=== PATIENT | male | born 1950 | race American Indian/Alaskan Native ===

== ENCOUNTER 2016-06-03 10:53 | Outpatient (CLI) | payer MEDICARE ==
[2016-06-03] MEDS ORDERED: XYLOCAINE TOPICAL 2% TP ONE (12:19)
== END 2016-06-03 10:54 | disposition home or self-care (01) ==
LOC: WOUND 10:53
PROVIDERS: ATTEND Orthopaedic Surgery
DX: L89.214 Pressure ulcer of right hip, stage 4 (principal); I10 Essential (primary) hypertension; J44.9 Chronic obstructive pulmonary disease, unspecified; M86.9 Osteomyelitis, unspecified; Z86.14 Personal history of Methicillin resistant Staphylococcus aureus infection; Z86.73 Personal history of transient ischemic attack (TIA), and cerebral infarction without residual deficits
CPT/HCPCS: 97605

== ENCOUNTER 2016-06-17 13:19 | Outpatient (CLI) | payer MEDICARE ==
[~2016-06-17 13:19] MED LIST: NACL 0.9% 500 ML IR ONE; XYLOCAINE TOPICAL 2% TP ONE
[2016-06-17] MEDS ORDERED: XYLOCAINE TOPICAL 2% TP ONE (15:04)
== END 2016-06-17 13:20 | disposition home or self-care (01) ==
LOC: WOUND 13:19
PROVIDERS: ATTEND Internal Medicine
DX: L89.214 Pressure ulcer of right hip, stage 4 (principal); J44.0 Chronic obstructive pulmonary disease with (acute) lower respiratory infection; I10 Essential (primary) hypertension; B18.2 Chronic viral hepatitis C; I25.10 Atherosclerotic heart disease of native coronary artery without angina pectoris; M19.90 Unspecified osteoarthritis, unspecified site; M86.9 Osteomyelitis, unspecified; Z86.14 Personal history of Methicillin resistant Staphylococcus aureus infection; Z86.73 Personal history of transient ischemic attack (TIA), and cerebral infarction without residual deficits
CPT/HCPCS: 99213; G0463

== ENCOUNTER 2016-06-17 14:24 | Emergency (ER) | payer MEDICARE ==
--- NOTE | 2016-06-17 15:23 | Admit Criteria Form ---
Admission Criteria Documentation: CELLULITIS Clinical Indications for Admission to Inpatient Care (Place 'X' for any and all applicable criteria): Admission is indicated for ANY ONE of the following(1)(2)(3)(4)(5): [ ]I. Limb-threatening infection [ ]II. High-risk comorbid condition as indicated by ANY ONE of the following: [ ]a) Uncontrolled diabetes (eg, HbA1c greater than 10% (0.1)) [ ]b) Cirrhosis [ ]c) Neutropenia [ ]d) Asplenia [ ]e) Immunosuppression [ ]f) Symptomatic heart failure [ ]III. Failure of outpatient therapy as indicated by ALL of the following: [ ]a) Progression or no improvement after adequate trial (minimum of 48 hours, with longer period for stable lower extremity infection) [ ]b) Adequate antibiotic regimen as indicated by use of ANY ONE of the following: [ ]i) First-generation cephalosporin (e.g., cephalexin) [ ]ii) Antistaphylococcal penicillin (e.g., dicloxacillin) [ ]iii) Penicillin-allergic patient regimen (clindamycin, extended-spectrum fluoroquinolone, or doxycycline) [ ]iv) Resistant organism (eg, methicillin-resistant Staphylococcus aureus) regimen (6) [ ]c) Outpatient intravenous therapy regimen is not appropriate due to ANY ONE of the following. (7)(8)(9)(10): [ ]i) It was tried and was not successful (eg, progression of infection). [ ]ii) It is not available or cannot be arranged in a clinically appropriate time frame (e.g., the next day). [ ]iii) Clinical presentation (eg, acuity of infection, rapidity of progression, confirmed or suspected bacteremia) is judged to require ALL of the following: [ ]1) Immediate initiation of intravenous therapy ( eg, cannot wait for next day) [ ]2) Intensity of patient monitoring and observation (eg, vital sign measurement, checks for infection progression) that cannot be provided at other than inpatient level of care [ ]IV. Mental status changes [ ]V. Bacteremia [ ]. Hemodynamic instability [ ]VII. Suspected necrotizing soft tissue infection (e.g., gas in tissue)(11)( 12) [ ]VIII. Orbital infection (13)(14) [ ]IX. Associated surgical procedure (e.g., abscess drainage, debridement) not amenable to outpatient, emergency department, or observation care [ ]X. Cutaneous gangrene [ ]XI. High fever (temperature greater than 39.5 degrees C (103.1 degrees F) (oral)) not responsive to outpatient, emergency department, or observation care therapy [ ]XIII. Inpatient admission required rather than observation care (Also use Cellulitis: Observation Care as appropriate) because of ANY ONE of the following : [ ]a) Periorbital or perineal infection that is severe or worsening [ ]b) Severe pain requiring acute inpatient management [ ]c) IV fluid to replace significant ongoing (e.g., for over 24 hours) losses (greater than 3L/m2 per day) [ ]d) Compartment syndrome monitoring (17) [ ]e) Strict or protective (eg, laminar flow) isolation [ ]f) Urgent debridement or skin grafting [ ]g) Bone or joint debridement [ ]h) Immediate inpatient surgery [ ]i) Other condition, treatment or monitoring requiring inpatient admission Extended stay beyond goal length of stay may be needed for (1)(18): [ ]a) Necrotizing soft tissue infection or fasciitis [ ]b) Gram-negative infection [ ]c) Methicillin-resistant Staphylococcal aureus (MRSA) infection [ ]d) Peripheral venous insufficiency with cellulitis [ ]e) Extensive edema [ ]f) Sepsis or continued Hemodynamic instability [ ]g) Continued high fever or mental status change [ ]h) Bacteremia [ ]i) Active serious comorbid conditions ( eg, heart failure, renal insufficiency) The original [employer] content created by [employer] has been revised. The portions of the content which have been revised are identified through the use of italic text or in bold, and [facility] has neither reviewed nor approved the modified material. All other unmodified content is copyright [employer] [facility] Please see references footnoted in the original [employer] edition 2016 Admission Criteria Met: Yes
--- NOTE | 2016-06-17 16:32 | Emergency Department Report ---
- General Chief complaint: Laceration/Recheck/Suture Stated complaint: POSS WOUND INFECTION Time Seen by Provider: 06/17/16 16:06 Source: patient Mode of arrival: Stretcher Limitations: No Limitations - History of Present Illness Initial comments: This is a 66-year-old gentleman with a long-standing history of right hip wound. He has been using a wound VAC and having daily wound excuse me 3 times a day wound evaluation by home health nurse as well as a weekly evaluation by that wound clinic here at the hospital. His wound did grow out MRSA as well as Proteus mirabilis in March upon admission. Patient indicates he is feeling well in general states that he has weakness generalized that is at his baseline he also reports that he has weakness in his lower extremities bilaterally and that this has been present for approximately the last 8 months. He describes no change in amount of his weakness denies fevers at home states he's eating and drinking well and feels that he is doing well in general. Patient indicates that when he arrived at wound care today they asked him to come to the ED for further evaluation due to portion of his demonstrating increased erythema. Patient denies any increase of drainage from the wound. He states again he has been feeling at his baseline. Patient does not recall the last time he was on antibiotics. MD complaint: lesion -: Gradual, month(s) Tetanus Up to Date: yes Location: buttocks Severity: moderate Severity scale (0 -10): 3 Quality: dull Consistency: constant Worsens with: none Context: other Associated symptoms: denies other symptoms Treatments Prior to Arrival: bandages - Related Data Home Medications Medication Instructions Recorded Confirmed Last Taken Sennosides/Docusate Sodium 1 each PO QDAY 07/31/15 06/17/16 08/20/15 [Doc-Q-Lax Tablet] Aspirin [Aspirin TAB] 81 mg PO DAILY 06/17/16 06/17/16 Unknown Coreg 25 mg PO BID 06/17/16 06/17/16 Unknown Previous Rx's Medication Instructions Recorded Last Taken Type Omeprazole [PriLOSEC] 20 mg PO QDAY #30 capsule. 10/30/15 Unknown Rx amLODIPine [Norvasc] 5 mg PO QDAY #30 tablet 10/30/15 Unknown Rx Erythromycin Base [Erythromycin] 500 mg PO TID #30 tablet 06/17/16 Unknown Rx Sulfamethoxazole/Trimethoprim 1 each PO BID #20 tablet 06/17/16 Unknown Rx [Bactrim DS TAB] Allergies Allergy/AdvReac Type Severity Reaction Status Date / Time No Known Allergies Allergy Verified 07/30/15 17:02 Abscess Boil HPI - HPI Chief Complaint: Laceration/Recheck/Suture Stated Complaint: POSS WOUND INFECTION Time Seen by Provider: 06/17/16 16:06 Location: Other (R hip/buttock) Severity: Mild History: Yes Previous History, No Fever, No Pain, No Foreign Body Home Medications: Home Medications Medication Instructions Recorded Confirmed Last Taken Sennosides/Docusate Sodium 1 each PO QDAY 07/31/15 06/17/16 08/20/15 [Doc-Q-Lax Tablet] Aspirin [Aspirin TAB] 81 mg PO DAILY 06/17/16 06/17/16 Unknown Coreg 25 mg PO BID 06/17/16 06/17/16 Unknown Previous Rx's Medication Instructions Recorded Last Taken Type Omeprazole [PriLOSEC] 20 mg PO QDAY #30 capsule. 10/30/15 Unknown Rx amLODIPine [Norvasc] 5 mg PO QDAY #30 tablet 10/30/15 Unknown Rx Erythromycin Base [Erythromycin] 500 mg PO TID #30 tablet 06/17/16 Unknown Rx Sulfamethoxazole/Trimethoprim 1 each PO BID #20 tablet 06/17/16 Unknown Rx [Bactrim DS TAB] Allergies/Adverse Reactions: Allergies Allergy/AdvReac Type Severity Reaction Status Date / Time No Known Allergies Allergy Verified 07/30/15 17:02 ED Review of Systems ROS: Stated complaint: POSS WOUND INFECTION Other details as noted in HPI Constitutional: denies: chills, fever Eyes: denies: eye pain, eye discharge, vision change ENT: denies: ear pain, throat pain Respiratory: denies: cough, shortness of breath, wheezing Cardiovascular: denies: chest pain, palpitations Endocrine: no symptoms reported Gastrointestinal: denies: abdominal pain, nausea, diarrhea Genitourinary: denies: urgency, dysuria Musculoskeletal: denies: back pain, joint swelling, arthralgia Skin: lesions (R buttock). denies: rash Neurological: denies: headache, weakness (generalized. Lower extremity weakness) , paresthesias Psychiatric: denies: anxiety, depression Hematological/Lymphatic: denies: easy bleeding, easy bruising ED Past Medical Hx - Past Medical History Hx Hypertension: Yes Hx CVA: Yes (2 years ago) Hx Heart Attack/AMI: Yes Hx Deep Vein Thrombosis: No Hx GERD: Yes Hx Liver Disease: Yes (Hep C) Hx Renal Disease: No Hx Arthritis: Yes Hx Psychiatric Treatment: Yes (DEPRESSION) Hx HIV: No Additional medical history: HIGH CHOLESTEROL. BPH. CAD. ULCER - Surgical History Hx Open Heart Surgery: Yes Hx Pacemaker: No Hx Internal Defibrillator: No Additional Surgical History: Left hip surgery. LEFT KNEE SURGERY. RIGHT HIP SURGERY - Social History Smoking Status: Never Smoker Substance Use Type: None - Medications Home Medications: Home Medications Medication Instructions Recorded Confirmed Last Taken Type Sennosides/Docusate Sodium 1 each PO QDAY 07/31/15 06/17/16 08/20/15 History [Doc-Q-Lax Tablet] Omeprazole [PriLOSEC] 20 mg PO QDAY #30 capsule. 10/30/15 06/17/16 Unknown Rx amLODIPine [Norvasc] 5 mg PO QDAY #30 tablet 10/30/15 06/17/16 Unknown Rx Aspirin [Aspirin TAB] 81 mg PO DAILY 06/17/16 06/17/16 Unknown History Coreg 25 mg PO BID 06/17/16 06/17/16 Unknown History Erythromycin Base [Erythromycin] 500 mg PO TID #30 tablet 06/17/16 Unknown Rx Sulfamethoxazole/Trimethoprim 1 each PO BID #20 tablet 06/17/16 Unknown Rx [Bactrim DS TAB] ED Physical Exam - General Limitations: No Limitations General appearance: alert, in no apparent distress - Head Head exam: Present: atraumatic, normocephalic - Eye Eye exam: Present: PERRL, EOMI - ENT ENT exam: Present: mucous membranes moist - Neck Neck exam: Present: normal inspection - Respiratory Respiratory exam: Present: normal lung sounds bilaterally. Absent: respiratory distress - Cardiovascular Cardiovascular Exam: Present: regular rate, normal rhythm. Absent: systolic murmur, diastolic murmur, rubs, gallop - GI/Abdominal GI/Abdominal exam: Present: soft, normal bowel sounds - External exam: Present: other (right buttock with involved lesion with a 2 cm x 3 cm H agree ulcer with wet-to-dry dressing in place good granular base. No significant drainage no foul smell. Mild hue of erythema extending in the left upper aspect of the wound involving approximately 4 cm x 6 cm soft tissue region. No fluctuance noted in this region.) - Extremities Exam Extremities exam: Present: other (equal distal pedal pulses bilat. Muscle wasting of lower extremities bilat.). Absent: pedal edema, joint swelling ED Course Vital Signs 06/17/16 06/17/16 15:46 16:52 Temperature 98.2 F Pulse Rate 85 74 Respiratory 16 16 Rate Blood Pressure 110/75 108/78 [Left] O2 Sat by Pulse 100 99 Oximetry - Reevaluation(s) Reevaluation #1: 06/17/16 16:35 I did review patient's last admission in March demonstrating microbiology detail of his wound. It demonstrated for his paralysis as well as MRSA infection. Proteus was sensitive to several oral agents including erythromycin. MRSA was sensitive to Bactrim. Patient is afebrile here he is well-appearing. He describes being at his baseline in general. I feel he is appropriate for home his vital signs are stable here as well. We will start him on oral antibiotics for home. He is set for recheck to wound care in 1 week. He has evaluation 3 times a week wound evaluation by home health nurses well. Critical Care Time: No Critical care attestation.: If time is entered above; I have spent that time in minutes in the direct care of this critically ill patient, excluding procedure time. ED Disposition Clinical Impression: MRSA (methicillin resistant Staphylococcus aureus) infection Cellulitis Qualifiers: Site of cellulitis: buttock Qualified Code(s): L03.317 - Cellulitis of buttock Disposition: DISCHARGED TO HOME OR SELFCARE Is pt being admited?: No Does the pt Need Aspirin: No Condition: Stable Additional Instructions: Continue with current wound care. Watch for further spread of red area around wound or increased drainage or fevers. Prescriptions: Erythromycin Base [Erythromycin] 500 mg PO TID #30 tablet Sulfamethoxazole/Trimethoprim [Bactrim DS TAB] 1 each PO BID #20 tablet Referrals: PRIMARY CARE, [Primary Care Provider] - 3-5 Days
[2016-06-17 16:53] VITALS: BP 108/78
== END 2016-06-17 18:10 | disposition home or self-care (01) ==
LOC: ED 14:24
DX: A49.02 Methicillin resistant Staphylococcus aureus infection, unspecified site (principal); L03.317 Cellulitis of buttock; I10 Essential (primary) hypertension; I25.2 Old myocardial infarction; K21.9 Gastro-esophageal reflux disease without esophagitis; M19.90 Unspecified osteoarthritis, unspecified site; F32.9 Major depressive disorder, single episode, unspecified; I25.10 Atherosclerotic heart disease of native coronary artery without angina pectoris; E78.00 Pure hypercholesterolemia, unspecified; Z86.73 Personal history of transient ischemic attack (TIA), and cerebral infarction without residual deficits; Z86.19 Personal history of other infectious and parasitic diseases
CPT/HCPCS: 99283

== ENCOUNTER 2016-07-15 11:34 | Outpatient (CLI) | payer MEDICARE ==
[2016-07-15] MEDS ORDERED: XYLOCAINE TOPICAL 4% TP ONE (12:04)
[2016-07-16] MEDS ORDERED: XYLOCAINE TOPICAL 4% TP ONE (08:46)
== END 2016-07-15 11:35 | disposition home or self-care (01) ==
LOC: WOUND 11:34
PROVIDERS: ATTEND Internal Medicine
DX: L89.214 Pressure ulcer of right hip, stage 4 (principal); J44.0 Chronic obstructive pulmonary disease with (acute) lower respiratory infection; I10 Essential (primary) hypertension; I25.10 Atherosclerotic heart disease of native coronary artery without angina pectoris; M19.90 Unspecified osteoarthritis, unspecified site; M86.9 Osteomyelitis, unspecified; H91.90 Unspecified hearing loss, unspecified ear; Z96.652 Presence of left artificial knee joint; Z96.642 Presence of left artificial hip joint; Z86.14 Personal history of Methicillin resistant Staphylococcus aureus infection; Z86.73 Personal history of transient ischemic attack (TIA), and cerebral infarction without residual deficits
CPT/HCPCS: 97605

== ENCOUNTER 2016-07-29 10:33 | Outpatient (CLI) | payer MEDICARE ==
[2016-07-29] MEDS ORDERED: XYLOCAINE TOPICAL 2% ONE (10:44)
[2016-07-29] MEDS ORDERED: XYLOCAINE TOPICAL 4% TP ONE (15:09)
== END 2016-07-29 10:34 | disposition home or self-care (01) ==
LOC: WOUND 10:33
PROVIDERS: ATTEND Internal Medicine
DX: L89.214 Pressure ulcer of right hip, stage 4 (principal); M19.90 Unspecified osteoarthritis, unspecified site; H91.90 Unspecified hearing loss, unspecified ear; I10 Essential (primary) hypertension; M86.9 Osteomyelitis, unspecified; J44.1 Chronic obstructive pulmonary disease with (acute) exacerbation; I25.10 Atherosclerotic heart disease of native coronary artery without angina pectoris; Z96.652 Presence of left artificial knee joint; Z96.642 Presence of left artificial hip joint; Z86.73 Personal history of transient ischemic attack (TIA), and cerebral infarction without residual deficits; Z86.14 Personal history of Methicillin resistant Staphylococcus aureus infection
CPT/HCPCS: 97605

== ENCOUNTER 2016-08-26 11:03 | Outpatient (CLI) | payer MEDICARE ==
[~2016-08-26 11:03] MED LIST changes: -NACL 0.9% 500 ML IR ONE; +NACL ONE; -XYLOCAINE TOPICAL 2% TP ONE
[2016-08-26] MEDS ORDERED: XYLOCAINE TOPICAL 4% TP ONE ×2 (11:17→11:42)
== END 2016-08-26 11:04 | disposition home or self-care (01) ==
LOC: WOUND 11:03
PROVIDERS: ATTEND Internal Medicine
DX: L89.214 Pressure ulcer of right hip, stage 4 (principal); L89.152 Pressure ulcer of sacral region, stage 2; J44.1 Chronic obstructive pulmonary disease with (acute) exacerbation; M19.90 Unspecified osteoarthritis, unspecified site; I25.10 Atherosclerotic heart disease of native coronary artery without angina pectoris; I10 Essential (primary) hypertension; M86.9 Osteomyelitis, unspecified; H91.90 Unspecified hearing loss, unspecified ear; Z86.14 Personal history of Methicillin resistant Staphylococcus aureus infection; Z86.73 Personal history of transient ischemic attack (TIA), and cerebral infarction without residual deficits; Z96.652 Presence of left artificial knee joint; Z96.642 Presence of left artificial hip joint; Z86.19 Personal history of other infectious and parasitic diseases
CPT/HCPCS: 97605

== ENCOUNTER 2016-09-16 11:22 | Outpatient (CLI) | payer MEDICARE ==
[2016-09-16] MEDS ORDERED: XYLOCAINE TOPICAL 4% TP ONE ×2 (11:25→13:00)
== END 2016-09-16 11:23 | disposition home or self-care (01) ==
LOC: WOUND 11:22
PROVIDERS: ATTEND Surgery
DX: L89.214 Pressure ulcer of right hip, stage 4 (principal); L89.152 Pressure ulcer of sacral region, stage 2; M19.90 Unspecified osteoarthritis, unspecified site; I25.10 Atherosclerotic heart disease of native coronary artery without angina pectoris; J44.1 Chronic obstructive pulmonary disease with (acute) exacerbation; I10 Essential (primary) hypertension; B18.2 Chronic viral hepatitis C; M86.68 Other chronic osteomyelitis, other site; F15.90 Other stimulant use, unspecified, uncomplicated; Z86.14 Personal history of Methicillin resistant Staphylococcus aureus infection; Z86.73 Personal history of transient ischemic attack (TIA), and cerebral infarction without residual deficits; Z96.652 Presence of left artificial knee joint

== ENCOUNTER 2016-09-30 11:10 | Outpatient (CLI) | payer MEDICARE ==
[2016-09-30] MEDS ORDERED: XYLOCAINE TOPICAL 2% ONE (11:35)
[2016-09-30] MEDS ORDERED: XYLOCAINE TOPICAL 2% TP ONE (12:00)
== END 2016-09-30 11:11 | disposition home or self-care (01) ==
LOC: WOUND 11:10
PROVIDERS: ATTEND Surgery
DX: L89.214 Pressure ulcer of right hip, stage 4 (principal); M19.90 Unspecified osteoarthritis, unspecified site; I25.10 Atherosclerotic heart disease of native coronary artery without angina pectoris; J44.1 Chronic obstructive pulmonary disease with (acute) exacerbation; I10 Essential (primary) hypertension; B18.2 Chronic viral hepatitis C; Z86.14 Personal history of Methicillin resistant Staphylococcus aureus infection; Z86.73 Personal history of transient ischemic attack (TIA), and cerebral infarction without residual deficits; Z96.652 Presence of left artificial knee joint; Z96.642 Presence of left artificial hip joint
CPT/HCPCS: 99214; G0463

== ENCOUNTER 2016-11-11 10:32 | Outpatient (CLI) | payer MEDICARE ==
[2016-11-11] MEDS ORDERED: XYLOCAINE TOPICAL 2% ONE (10:57)
[2016-11-11] MEDS ORDERED: XYLOCAINE TOPICAL 2% TP ONE (11:13)
== END 2016-11-11 10:33 | disposition home or self-care (01) ==
LOC: WOUND 10:32
PROVIDERS: ATTEND Surgery
DX: L89.214 Pressure ulcer of right hip, stage 4 (principal); M19.90 Unspecified osteoarthritis, unspecified site; I25.10 Atherosclerotic heart disease of native coronary artery without angina pectoris; J44.1 Chronic obstructive pulmonary disease with (acute) exacerbation; I10 Essential (primary) hypertension; B18.2 Chronic viral hepatitis C; Z86.14 Personal history of Methicillin resistant Staphylococcus aureus infection; Z86.73 Personal history of transient ischemic attack (TIA), and cerebral infarction without residual deficits; Z96.652 Presence of left artificial knee joint; Z96.642 Presence of left artificial hip joint
CPT/HCPCS: 99214; G0463

== ENCOUNTER 2017-04-22 02:42 | Inpatient (IN) | payer MEDICARE ==
[2017-04-22] MEDS ORDERED: ZOFRAN IV ONE (04:50)
[2017-04-22] MEDS ORDERED: NACL 0.9% 1000 ML 1,000 ML IV ONE (04:50)
[2017-04-22] MEDS ORDERED: NACL 0.9% 1000 ML 1,000 ML ONE (04:56)
[2017-04-22] MEDS ORDERED: ZOFRAN ONE (04:56)
[2017-04-22 05:15] LABS: Basophils % (Auto) 0.2 % (0.0-1.8); Eosinophils % (Auto) 0.1 % (0.0-4.3); Hematocrit 49.6 % (35.5-45.6); Hemoglobin 16.5 gm/dl (11.8-15.2); Mean Corpuscular HGB Conc 33 % (32-34); Mean Corpuscular Hemoglobin 28 pg (28-32); Mean Corpuscular Volume 85 fl (84-94); Platelet Count 149 K/mm3 (140-440); Red Blood Count 5.87 M/mm3 (3.65-5.03); Red Cell Distribution Width 16.2 % (13.2-15.2); White Blood Count 17.8 K/mm3 (4.5-11.0)
[2017-04-22 05:36] LABS: Bilirubin,Urine NEG (Negative); Blood,Urine NEG (Negative); Ketones,Urine TR mg/dL (Negative); Leukocyte Esterase,Urine NEG (Negative); Mucus,Urine FEW /HPF; Nitrite,Urine NEG (Negative); Protein,Urine <15 mg/dL mg/dL (Negative)
[2017-04-22 05:40] LABS: Alanine Aminotransferase 40 units/L (7-56); Albumin 3.5 g/dL (3.9-5); Albumin/Globulin Ratio 1.3 %; Alkaline Phosphatase 110 units/L (35-129); Anion Gap 23 mmol/L; BUN/Creatinine Ratio 36; Blood Urea Nitrogen 32 mg/dL (9-20); Calcium 8.7 mg/dL (8.4-10.2); Carbon Dioxide 22 mmol/L (22-30); Chloride 100.6 mmol/L (98-107); Glucose 115 mg/dL (75-100); Lipase 29 units/L (13-60); Potassium 3.5 mmol/L (3.6-5.0); Sodium 142 mmol/L (137-145); Total Protein 6.3 g/dL (6.3-8.2)
[2017-04-22] MEDS ORDERED: TYLENOL PO ONE (08:06)
[2017-04-22] MEDS ORDERED: NACL 0.9% 1000 ML IV ONE (08:06)
--- NOTE | 2017-04-22 08:08 | Emergency Department Report ---
ED General Adult HPI - General Chief complaint: Abdominal Pain Stated complaint: DIARRHEA Time Seen by Provider: 04/22/17 07:57 Source: patient, family, EMS (ems notes not available at time of chart dictation), RN notes reviewed, old records reviewed Mode of arrival: Stretcher Limitations: Physical Limitation - History of Present Illness Initial comments: This is a 67-year-old male who is previously known to this provider. Past medical history includes hypertension, heart disease, high cholesterol, stroke, left hip surgical resection secondary to infection. Patient presents to the ER with abdominal pain. The abdominal pain is achy. He indicates it is "all over." The pain does not have exacerbating or relieving factors. Positive subjective fever. Positive generalized weakness. Patient also describes 3 episodes of diarrhea, and 3 episodes of nonbloody, nonbilious emesis. -: Gradual, days(s) Location: abdomen Radiation: non-radiation Quality: aching Consistency: intermittent Improves with: rest Worsens with: movement Associated Symptoms: fever/chills, malaise, nausea/vomiting, weakness - Related Data Home Medications Medication Instructions Recorded Confirmed Last Taken AtorvaSTATin [Lipitor] 20 mg PO QHS 04/22/17 04/22/17 04/21/17 Carvedilol [Coreg] 25 mg PO BID 04/22/17 04/22/17 04/21/17 Esomeprazole Magnesium [NexIUM] 40 mg PO QDAY 04/22/17 04/22/17 04/21/17 Ferrous Sulfate [Iron] 325 mg PO DAILY 04/22/17 04/22/17 04/21/17 Hydrochlorothiazide [HCTZ] 25 mg PO QDAY 04/22/17 04/22/17 04/21/17 Metoprolol Xl [Metoprolol 50 mg PO QDAY 04/22/17 04/22/17 04/21/17 SUCCINATE ER TAB] Oxybutynin Chloride [Ditropan Xl] 10 mg PO QDAY 04/22/17 04/22/17 04/21/17 Rosuvastatin Calcium [Crestor] 20 mg PO QHS 04/22/17 04/22/17 04/21/17 amLODIPine [Norvasc] 10 mg PO DAILY 04/22/17 04/22/17 04/21/17 traMADol [Ultram] 50 mg PO Q4HR PRN 04/22/17 04/22/17 04/21/17 Allergies Allergy/AdvReac Type Severity Reaction Status Date / Time No Known Allergies Allergy Verified 07/30/15 17:02 ED Review of Systems ROS: Stated complaint: DIARRHEA Other details as noted in HPI Constitutional: fever, malaise Eyes: denies: vision change ENT: denies: epistaxis Respiratory: denies: cough Cardiovascular: denies: chest pain Gastrointestinal: abdominal pain, diarrhea Genitourinary: as per HPI Musculoskeletal: as per HPI, back pain Neurological: as per HPI, weakness ED Past Medical Hx - Past Medical History Previous Medical History?: Yes Hx Hypertension: Yes Hx CVA: Yes (2 years ago) Hx Heart Attack/AMI: Yes Hx Deep Vein Thrombosis: No Hx GERD: Yes Hx Liver Disease: Yes (Hep C) Hx Renal Disease: No Hx Arthritis: Yes Hx Psychiatric Treatment: Yes (DEPRESSION) Hx HIV: No Additional medical history: HIGH CHOLESTEROL. BPH. CAD. ULCER - Surgical History Past Surgical History?: Yes Hx Open Heart Surgery: Yes () Hx Pacemaker: No Hx Internal Defibrillator: No Additional Surgical History: Left hip removal. LEFT KNEE SURGERY. RIGHT HIP SURGERY - Social History Smoking Status: Unknown if ever smoked Substance Use Type: None - Medications Home Medications: Home Medications Medication Instructions Recorded Confirmed Last Taken Type AtorvaSTATin [Lipitor] 20 mg PO QHS 04/22/17 04/22/17 04/21/17 History Carvedilol [Coreg] 25 mg PO BID 04/22/17 04/22/17 04/21/17 History Esomeprazole Magnesium [NexIUM] 40 mg PO QDAY 04/22/17 04/22/17 04/21/17 History Ferrous Sulfate [Iron] 325 mg PO DAILY 04/22/17 04/22/17 04/21/17 History Hydrochlorothiazide [HCTZ] 25 mg PO QDAY 04/22/17 04/22/17 04/21/17 History Metoprolol Xl [Metoprolol 50 mg PO QDAY 04/22/17 04/22/17 04/21/17 History SUCCINATE ER TAB] Oxybutynin Chloride [Ditropan Xl] 10 mg PO QDAY 04/22/17 04/22/17 04/21/17 History Rosuvastatin Calcium [Crestor] 20 mg PO QHS 1204/22/17 04/21/17 History amLODIPine [Norvasc] 10 mg PO DAILY 04/22/17 04/22/17 04/21/17 History traMADol [Ultram] 50 mg PO Q4HR PRN 04/22/17 04/22/17 04/21/17 History ED Physical Exam - General Limitations: Physical Limitation General appearance: alert, in no apparent distress - Head Head exam: Present: atraumatic, normocephalic - Eye Eye exam: Present: normal appearance, EOMI. Absent: nystagmus - ENT ENT exam: Present: normal exam, normal orophraynx, mucous membranes moist, normal external ear exam - Neck Neck exam: Present: normal inspection, full ROM - Respiratory Respiratory exam: Present: normal lung sounds bilaterally. Absent: respiratory distress - Cardiovascular Cardiovascular Exam: Present: regular rate, normal rhythm, normal heart sounds. Absent: systolic murmur, diastolic murmur, rubs, gallop - GI/Abdominal GI/Abdominal exam: Present: soft, normal bowel sounds. Absent: distended, tenderness, guarding, rebound, rigid, pulsatile mass - Rectal Rectal exam: Present: deferred - Extremities Exam Extremities exam: Present: normal inspection, normal capillary refill, other ( patient is contracted in the left lower extremity.). Absent: calf tenderness - Back Exam Back exam: Present: normal inspection. Absent: tenderness, CVA tenderness (R), paraspinal tenderness, vertebral tenderness - Neurological Exam Neurological exam: Present: alert, oriented X3, other (there is no facial droop , the tongue is midline, extraocular movements are intact bilaterally, sensation intact to light touch in 4 extremities, speaking in full sentences) - Psychiatric Psychiatric exam: Present: normal affect, normal mood - Skin Skin exam: Present: warm, dry, intact, normal color. Absent: rash ED Course Vital Signs 04/22/17 04/22/17 04/22/17 04:06 04:15 04:31 Temperature Pulse Rate 87 87 92 H Respiratory 16 18 12 Rate Blood Pressure 97/70 112/80 Blood Pressure [Left] O2 Sat by Pulse 96 Oximetry 04/22/17 04/22/17 04/22/17 04:37 04:45 05:00 Temperature 99.2 F Pulse Rate 84 89 85 Respiratory 21 13 15 Rate Blood Pressure 106/74 103/72 118/80 Blood Pressure [Left] O2 Sat by Pulse 97 99 Oximetry 04/22/17 04/22/17 04/22/17 05:06 05:15 05:30 Temperature Pulse Rate 84 71 Respiratory 20 16 22 Rate Blood Pressure 115/83 105/69 Blood Pressure [Left] O2 Sat by Pulse 99 100 Oximetry 04/22/17 04/22/17 04/22/17 05:45 06:00 06:15 Temperature Pulse Rate 78 74 79 Respiratory 13 15 15 Rate Blood Pressure 126/82 98/67 100/70 Blood Pressure [Left] O2 Sat by Pulse 100 100 100 Oximetry 04/22/17 04/22/17 04/22/17 06:30 06:45 07:00 Temperature Pulse Rate 82 86 86 Respiratory 19 15 15 Rate Blood Pressure 99/70 90/66 110/71 Blood Pressure [Left] O2 Sat by Pulse 100 100 Oximetry 04/22/17 04/22/17 04/22/17 07:16 08:50 10:30 Temperature 98.7 F 98.2 F Pulse Rate 85 78 72 Respiratory 16 14 16 Rate Blood Pressure Blood Pressure 108/78 95/65 96/53 [Left] O2 Sat by Pulse 100 98 100 Oximetry 04/22/17 04/22/17 12:00 14:30 Temperature 98.1 F Pulse Rate 74 90 Respiratory 16 16 Rate Blood Pressure Blood Pressure 95/63 103/64 [Left] O2 Sat by Pulse 100 100 Oximetry ED Medical Decision Making - Lab Data Result diagrams: 04/22/17 05:02 04/22/17 05:02 Vital Signs 04/22/17 04/22/17 04/22/17 04:06 04:15 04:31 Temperature Pulse Rate 87 87 92 H Respiratory 16 18 12 Rate Blood Pressure 97/70 112/80 Blood Pressure [Left] O2 Sat by Pulse 96 Oximetry 04/22/17 04/22/17 04/22/17 04:37 04:45 05:00 Temperature 99.2 F Pulse Rate 84 89 85 Respiratory 21 13 15 Rate Blood Pressure 106/74 103/72 118/80 Blood Pressure [Left] O2 Sat by Pulse 97 99 Oximetry 04/22/17 04/22/17 04/22/17 05:06 05:15 05:30 Temperature Pulse Rate 84 71 Respiratory 20 16 22 Rate Blood Pressure 115/83 105/69 Blood Pressure [Left] O2 Sat by Pulse 99 100 Oximetry 04/22/17 04/22/17 04/22/17 05:45 06:00 06:15 Temperature Pulse Rate 78 74 79 Respiratory 13 15 15 Rate Blood Pressure 126/82 98/67 100/70 Blood Pressure [Left] O2 Sat by Pulse 100 100 100 Oximetry 04/22/17 04/22/17 04/22/17 06:30 06:45 07:00 Temperature Pulse Rate 82 86 86 Respiratory 19 15 15 Rate Blood Pressure 99/70 90/66 110/71 Blood Pressure [Left] O2 Sat by Pulse 100 100 Oximetry 04/22/17 04/22/17 04/22/17 07:16 08:50 10:30 Temperature 98.7 F 98.2 F Pulse Rate 85 78 72 Respiratory 16 14 16 Rate Blood Pressure Blood Pressure 108/78 95/65 96/53 [Left] O2 Sat by Pulse 100 98 100 Oximetry Lab Results 04/22/17 04/22/17 04/22/17 Range/Units 05:02 05:02 05:06 WBC 17.8 H (4.5-11.0) K/mm3 RBC 5.87 H (3.65-5.03) M/mm3 Hgb 16.5 H (11.8-15.2) gm/dl Hct 49.6 H (35.5-45.6) % MCV 85 (84-94) fl MCH 28 (28-32) pg MCHC 33 (32-34) % RDW 16.2 H (13.2-15.2) % Plt Count 149 (140-440) K/mm3 Lymph % (Auto) 4.9 L (13.4-35.0) % [place] % (Auto) 5.4 (0.0-7.3) % Eos % (Auto) 0.1 (0.0-4.3) % Baso % (Auto) 0.2 (0.0-1.8) % Lymph # 0.9 L (1.2-5.4) K/mm3 [place] # 1.0 H (0.0-0.8) K/mm3 Eos # 0.0 (0.0-0.4) K/mm3 Baso # 0.0 (0.0-0.1) K/mm3 Seg Neutrophils % 89.4 H (40.0-70.0) % Seg Neutrophils # 15.9 H (1.8-7.7) K/mm3 Sodium 142 (137-145) mmol/L Potassium 3.5 L (3.6-5.0) mmol/L Chloride 100.6 (98-107) mmol/L Carbon Dioxide 22 (22-30) mmol/L Anion Gap 23 mmol/L BUN 32 H (9-20) mg/dL Creatinine 0.9 (0.8-1.5) mg/dL Estimated GFR > 60 ml/min BUN/Creatinine Ratio 36 % Glucose 115 H (75-100) mg/dL Lactic Acid (0.7-2.0) mmol/L Calcium 8.7 (8.4-10.2) mg/dL Total Bilirubin 0.90 (0.1-1.2) mg/dL AST 39 (5-40) units/L ALT 40 (7-56) units/L Alkaline Phosphatase 110 (35-129) units/L Total Creatine Kinase (55-170) units/L Total Protein 6.3 (6.3-8.2) g/dL Albumin 3.5 L (3.9-5) g/dL Albumin/Globulin Ratio 1.3 % Lipase 29 (13-60) units/L Urine Color Janie (Yellow) Urine Turbidity Clear (Clear) Urine pH 5.0 (5.0-7.0) Ur Specific [place] 1.023 (1.003-1.030) Urine Protein <15 mg/dl (Negative) mg/dL Urine Glucose (UA) Neg (Negative) mg/dL Urine Ketones Tr (Negative) mg/dL Urine Blood Neg (Negative) Urine Nitrite Neg (Negative) Urine Bilirubin Neg (Negative) Urine Urobilinogen 4.0 (<2.0) mg/dL Ur Leukocyte Esterase Neg (Negative) Urine WBC (Auto) 3.0 (0.0-6.0) /HPF Urine RBC (Auto) 3.0 (0.0-6.0) /HPF U Epithel Cells (Auto) 3.0 (0-13.0) /HPF Urine Bacteria (Auto) (Negative) /HPF Hyaline Casts 1 /LPF Urine Mucus Few /HPF 04/22/17 04/22/17 04/22/17 Range/Units 08:30 08:30 08:38 WBC (4.5-11.0) K/mm3 RBC (3.65-5.03) M/mm3 Hgb (11.8-15.2) gm/dl Hct (35.5-45.6) % MCV (84-94) fl MCH (28-32) pg MCHC (32-34) % RDW (13.2-15.2) % Plt Count (140-440) K/mm3 Lymph % (Auto) (13.4-35.0) % [place] % (Auto) (0.0-7.3) % Eos % (Auto) (0.0-4.3) % Baso % (Auto) (0.0-1.8) % Lymph # (1.2-5.4) K/mm3 [place] # (0.0-0.8) K/mm3 Eos # (0.0-0.4) K/mm3 Baso # (0.0-0.1) K/mm3 Seg Neutrophils % (40.0-70.0) % Seg Neutrophils # (1.8-7.7) K/mm3 Sodium (137-145) mmol/L Potassium (3.6-5.0) mmol/L Chloride (98-107) mmol/L Carbon Dioxide (22-30) mmol/L Anion Gap mmol/L BUN (9-20) mg/dL Creatinine (0.8-1.5) mg/dL Estimated GFR ml/min BUN/Creatinine Ratio % Glucose (75-100) mg/dL Lactic Acid 1.70 (0.7-2.0) mmol/L Calcium (8.4-10.2) mg/dL Total Bilirubin (0.1-1.2) mg/dL AST (5-40) units/L ALT (7-56) units/L Alkaline Phosphatase (35-129) units/L Total Creatine Kinase 47 L (55-170) units/L Total Protein (6.3-8.2) g/dL Albumin (3.9-5) g/dL Albumin/Globulin Ratio % Lipase (13-60) units/L Urine Color Janie (Yellow) Urine Turbidity Clear (Clear) Urine pH 5.0 (5.0-7.0) Ur Specific [place] 1.023 (1.003-1.030) Urine Protein <15 mg/dl (Negative) mg/dL Urine Glucose (UA) Neg (Negative) mg/dL Urine Ketones Tr (Negative) mg/dL Urine Blood Neg (Negative) Urine Nitrite Neg (Negative) Urine Bilirubin Neg (Negative) Urine Urobilinogen 4.0 (<2.0) mg/dL Ur Leukocyte Esterase Neg (Negative) Urine WBC (Auto) 3.0 (0.0-6.0) /HPF Urine RBC (Auto) 2.0 (0.0-6.0) /HPF U Epithel Cells (Auto) 1.0 (0-13.0) /HPF Urine Bacteria (Auto) 1+ (Negative) /HPF Hyaline Casts /LPF Urine Mucus Few /HPF 04/22/17 Range/Units 10:48 WBC (4.5-11.0) K/mm3 RBC (3.65-5.03) M/mm3 Hgb (11.8-15.2) gm/dl Hct (35.5-45.6) % MCV (84-94) fl MCH (28-32) pg MCHC (32-34) % RDW (13.2-15.2) % Plt Count (140-440) K/mm3 Lymph % (Auto) (13.4-35.0) % [place] % (Auto) (0.0-7.3) % Eos % (Auto) (0.0-4.3) % Baso % (Auto) (0.0-1.8) % Lymph # (1.2-5.4) K/mm3 [place] # (0.0-0.8) K/mm3 Eos # (0.0-0.4) K/mm3 Baso # (0.0-0.1) K/mm3 Seg Neutrophils % (40.0-70.0) % Seg Neutrophils # (1.8-7.7) K/mm3 Sodium (137-145) mmol/L Potassium (3.6-5.0) mmol/L Chloride (98-107) mmol/L Carbon Dioxide (22-30) mmol/L Anion Gap mmol/L BUN (9-20) mg/dL Creatinine (0.8-1.5) mg/dL Estimated GFR ml/min BUN/Creatinine Ratio % Glucose (75-100) mg/dL Lactic Acid 1.50 (0.7-2.0) mmol/L Calcium (8.4-10.2) mg/dL Total Bilirubin (0.1-1.2) mg/dL AST (5-40) units/L ALT (7-56) units/L Alkaline Phosphatase (35-129) units/L Total Creatine Kinase (55-170) units/L Total Protein (6.3-8.2) g/dL Albumin (3.9-5) g/dL Albumin/Globulin Ratio % Lipase (13-60) units/L Urine Color (Yellow) Urine Turbidity (Clear) Urine pH (5.0-7.0) Ur Specific [place] (1.003-1.030) Urine Protein (Negative) mg/dL Urine Glucose (UA) (Negative) mg/dL Urine Ketones (Negative) mg/dL Urine Blood (Negative) Urine Nitrite (Negative) Urine Bilirubin (Negative) Urine Urobilinogen (<2.0) mg/dL Ur Leukocyte Esterase (Negative) Urine WBC (Auto) (0.0-6.0) /HPF Urine RBC (Auto) (0.0-6.0) /HPF U Epithel Cells (Auto) (0-13.0) /HPF Urine Bacteria (Auto) (Negative) /HPF Hyaline Casts /LPF Urine Mucus /HPF - Radiology Data Radiology results: report reviewed, image reviewed interpreted by me: X-ray the chest is negative for acute disease, status post sternotomy cc: FAHEEM HENDERSON MD CT ABDOMEN AND PELVIS WITH CONTRAST INDICATION: Abdominal pain, sepsis. COMPARISON: 07/12/[address] FINDINGS: Abdomen and pelvis CT performed following intravenous administration of 100 cc of Omnipaque 300. LUNG BASES: Atherosclerotic coronary and aortic calcifications. Slight left basilar atelectasis posteriorly is new. Slight nonspecific distal esophageal prominence/thickening. ABDOMEN: Postsurgical changes as staple line along the lesser curvature of the stomach as also few surgical clips medial to the pylorus or the proximal duodenum, creating some streak artifact are new since 2007. Small nonobstructing renal calcifications also now noted, much more numerous on the right and approximately 7-8 in number with the largest 5 mm, axial image 36, series 2. Liver, spleen, gallbladder, pancreas, adrenals and IVC otherwise within normal limits. Abdominal aortic atherosclerotic calcifications and mild ectasia distally as on axial image 48, series 2. No ascites or significant adenopathy. Nonopacified bowel evaluation limited, though imaged small bowel and ascending and proximal transverse colon within normal limits. Approximately 6 cm distal transverse colon segment nondistended/thickwalled as on axial series 2, images 24-36, persistent on the delayed phase, though nonspecific for physiologic/peristaltic versus pathologic. Further distal small to moderate descending colon stool noted extending to the proximal sigmoid that courses transversely towards the right lower quadrant. PELVIS: However, mid to distal sigmoid and the rectum for approximately 25-30 cm length as on axial images 54-72, series 2 predominantly within the right hemipelvis suggest diffuse wall prominence/thickening and subtle surrounding fat stranding before leading up to moderate distal rectal stool. No definite free fluid or significant adenopathy, though evaluation in part limited due to extensive streak artifact from stable right hip arthroplasty. A left proximal femoral cerclage wire and few chronic deformities, including left hip dislocation with superior femoral migration noted, new since 2007. Multilevel spinal degenerative changes as spurring and lower lumbar facet arthropathy. Interval sternotomy wires as well. CONCLUSION: 1. CT appearance worrisome for rectosigmoid inflammatory wall thickening in an appropriate setting, as described. Please also correlate clinically and with laboratory values. A small distal transverse colon segment is also nonspecific, as detailed above. 2. Various other findings, including multiple postsurgical changes, many new since 2007 as also nonobstructing nephrolithiasis in this patient with chronic left hip deformity/dislocation, as above. Thank you for the opportunity to participate in this patient's care. Transcribed By: RS Dictated By: ASYA MCCOY MD Electronically Authenticated By: ASYA MCCOY MD Signed Date/Time: 04/22/17 0996 - Medical Decision Making Differential diagnosis, including not limited to: Colitis, diverticulitis, urinary tract infection, perforated viscus Assessment and plan: 67-year-old male with poor mobility, low grade temperature of 100.2 rectally, leukocytosis of 17, heart rate greater than 90, concerning for abdominal sepsis. CT scan of the abdomen and pelvis with IV contrast suggests distal sigmoid colitis/diverticulitis. Given his advanced age, medical comorbidities, patient ruling in for sepsis criteria, patient will be admitted. He is treated with aggressive IV fluids, antibiotics, and Tylenol. Case discussed with general surgery on-call Dr Yenifer Noriega, and hospital physician sales contract administrator, Dr Andino, who agreed to consult and admit on a patient respectively for aforementioned findings. Critical care attestation.: If time is entered above; I have spent that time in minutes in the direct care of this critically ill patient, excluding procedure time. ED Disposition Clinical Impression: Sepsis Disposition: OP ADMIT IP TO THIS HOSP Is pt being admited?: Yes Condition: Good
[2017-04-22] MEDS ORDERED: NACL 0.9% 500 ML 500 ML ONE (08:37)
[2017-04-22 09:14] LABS: Bacteria,Urine 1+ /HPF (Negative); Bilirubin,Urine NEG (Negative); Blood,Urine NEG (Negative); Ketones,Urine TR mg/dL (Negative); Leukocyte Esterase,Urine NEG (Negative); Mucus,Urine FEW /HPF; Nitrite,Urine NEG (Negative); Protein,Urine <15 mg/dL mg/dL (Negative)
--- NOTE | 2017-04-22 09:20 | Cat Scan Report ---
CT ABDOMEN AND PELVIS WITH CONTRAST INDICATION: Abdominal pain, sepsis. COMPARISON: 07/12/[address] FINDINGS: Abdomen and pelvis CT performed following intravenous administration of 100 cc of Omnipaque 300. LUNG BASES: Atherosclerotic coronary and aortic calcifications. Slight left basilar atelectasis posteriorly is new. Slight nonspecific distal esophageal prominence/thickening. ABDOMEN: Postsurgical changes as staple line along the lesser curvature of the stomach as also few surgical clips medial to the pylorus or the proximal duodenum, creating some streak artifact are new since 2007. Small nonobstructing renal calcifications also now noted, much more numerous on the right and approximately 7-8 in number with the largest 5 mm, axial image 36, series 2. Liver, spleen, gallbladder, pancreas, adrenals and IVC otherwise within normal limits. Abdominal aortic atherosclerotic calcifications and mild ectasia distally as on axial image 48, series 2. No ascites or significant adenopathy. Nonopacified bowel evaluation limited, though imaged small bowel and ascending and proximal transverse colon within normal limits. Approximately 6 cm distal transverse colon segment nondistended/thickwalled as on axial series 2, images 24-36, persistent on the delayed phase, though nonspecific for physiologic/peristaltic versus pathologic. Further distal small to moderate descending colon stool noted extending to the proximal sigmoid that courses transversely towards the right lower quadrant. PELVIS: However, mid to distal sigmoid and the rectum for approximately 25-30 cm length as on axial images 54-72, series 2 predominantly within the right hemipelvis suggest diffuse wall prominence/thickening and subtle surrounding fat stranding before leading up to moderate distal rectal stool. No definite free fluid or significant adenopathy, though evaluation in part limited due to extensive streak artifact from stable right hip arthroplasty. A left proximal femoral cerclage wire and few chronic deformities, including left hip dislocation with superior femoral migration noted, new since 2007. Multilevel spinal degenerative changes as spurring and lower lumbar facet arthropathy. Interval sternotomy wires as well. CONCLUSION: 1. CT appearance worrisome for rectosigmoid inflammatory wall thickening in an appropriate setting, as described. Please also correlate clinically and with laboratory values. A small distal transverse colon segment is also nonspecific, as detailed above. 2. Various other findings, including multiple postsurgical changes, many new since 2007 as also nonobstructing nephrolithiasis in this patient with chronic left hip deformity/dislocation, as above. Thank you for the opportunity to participate in this patient's care.
[2017-04-22] MEDS ORDERED: LEVAQUIN PO ONE (09:37)
[2017-04-22] MEDS ORDERED: FLAGYL 500 MG/100 ML 500 MG/100 ML BAG IV ONE (11:45)
--- NOTE | 2017-04-22 13:04 | Progress Note ---
Assessment and Plan Full consult dictated: This is a 67-year-old male who is previously known to this provider. Past medical history includes hypertension, heart disease, high cholesterol, stroke, left hip surgical resection secondary to infection. Patient presents to the ER with abdominal pain. The abdominal pain is achy. He indicates it is "all over." The pain does not have exacerbating or relieving factors. Positive subjective fever. Positive generalized weakness. Patient also describes 3 episodes of diarrhea, and 3 episodes of nonbloody, nonbilious emesis. -: Gradual, days(s) Location: abdomen Radiation: non-radiation Quality: aching Consistency: intermittent Improves with: rest Worsens with: movement Associated Symptoms: fever/chills, malaise, nausea/vomiting, weakness Laboratory Tests 04/22/17 04/22/17 05:02 05:02 WBC 17.8 H Hgb 16.5 H Hct 49.6 H Sodium 142 Potassium 3.5 L Chloride 100.6 Carbon Dioxide 22 Anion Gap 23 BUN 32 H Creatinine 0.9 Total Bilirubin 0.90 AST 39 ALT [address] reviewed with radiologist - recto sigmoid colitis rec - NPO stool cults IV antibiotics no imminent surgical intervention at this time will follow Objective Vital Signs - 12hr 04/22/17 04/22/17 04/22/17 04:06 04:15 04:31 Temperature Pulse Rate 87 87 92 H Respiratory 16 18 12 Rate Blood Pressure 97/70 112/80 Blood Pressure [Left] O2 Sat by Pulse 96 Oximetry 04/22/17 04/22/17 04/22/17 04:37 04:45 05:00 Temperature 99.2 F Pulse Rate 84 89 85 Respiratory 21 13 15 Rate Blood Pressure 106/74 103/72 118/80 Blood Pressure [Left] O2 Sat by Pulse 97 99 Oximetry 04/22/17 04/22/17 04/22/17 05:06 05:15 05:30 Temperature Pulse Rate 84 71 Respiratory 20 16 22 Rate Blood Pressure 115/83 105/69 Blood Pressure [Left] O2 Sat by Pulse 99 100 Oximetry 04/22/17 04/22/17 04/22/17 05:45 06:00 06:15 Temperature Pulse Rate 78 74 79 Respiratory 13 15 15 Rate Blood Pressure 126/82 98/67 100/70 Blood Pressure [Left] O2 Sat by Pulse 100 100 100 Oximetry 04/22/17 04/22/17 04/22/17 06:30 06:45 07:00 Temperature Pulse Rate 82 86 86 Respiratory 19 15 15 Rate Blood Pressure 99/70 90/66 110/71 Blood Pressure [Left] O2 Sat by Pulse 100 100 Oximetry 04/22/17 04/22/17 04/22/17 07:16 08:50 10:30 Temperature 98.7 F 98.2 F Pulse Rate 85 78 72 Respiratory 16 14 16 Rate Blood Pressure Blood Pressure 108/78 95/65 96/53 [Left] O2 Sat by Pulse 100 98 100 Oximetry 04/22/17 12:00 Temperature Pulse Rate 74 Respiratory 16 Rate Blood Pressure Blood Pressure 95/63 [Left] O2 Sat by Pulse 100 Oximetry - Labs 04/22/17 05:02 04/22/17 05:02 Diabetes panel 04/22/17 Range/Units 05:02 Sodium 142 (137-145) mmol/L Potassium 3.5 L (3.6-5.0) mmol/L Chloride 100.6 (98-107) mmol/L Carbon Dioxide 22 (22-30) mmol/L BUN 32 H (9-20) mg/dL Creatinine 0.9 (0.8-1.5) mg/dL Glucose 115 H (75-100) mg/dL Calcium 8.7 (8.4-10.2) mg/dL AST 39 (5-40) units/L ALT 40 (7-56) units/L Alkaline Phosphatase 110 (35-129) units/L Total Protein 6.3 (6.3-8.2) g/dL Albumin 3.5 L (3.9-5) g/dL Calcium panel 04/22/17 Range/Units 05:02 Calcium 8.7 (8.4-10.2) mg/dL Albumin 3.5 L (3.9-5) g/dL Pituitary panel 04/22/17 Range/Units 05:02 Sodium 142 (137-145) mmol/L Potassium 3.5 L (3.6-5.0) mmol/L Chloride 100.6 (98-107) mmol/L Carbon Dioxide 22 (22-30) mmol/L BUN 32 H (9-20) mg/dL Creatinine 0.9 (0.8-1.5) mg/dL Glucose 115 H (75-100) mg/dL Calcium 8.7 (8.4-10.2) mg/dL Adrenal panel 04/22/17 Range/Units 05:02 Sodium 142 (137-145) mmol/L Potassium 3.5 L (3.6-5.0) mmol/L Chloride 100.6 (98-107) mmol/L Carbon Dioxide 22 (22-30) mmol/L BUN 32 H (9-20) mg/dL Creatinine 0.9 (0.8-1.5) mg/dL Glucose 115 H (75-100) mg/dL Calcium 8.7 (8.4-10.2) mg/dL Total Bilirubin 0.90 (0.1-1.2) mg/dL AST 39 (5-40) units/L ALT 40 (7-56) units/L Alkaline Phosphatase 110 (35-129) units/L Total Protein 6.3 (6.3-8.2) g/dL Albumin 3.5 L (3.9-5) g/dL
--- NOTE | 2017-04-22 13:54 | History and Physical Report ---
History of Present Illness Chief complaint: My stomach hurts History of present illness: 67 YO Male with HTN, CVA, [place], GERD, HCV, OA, HLD, BPH, PUD, CAD S/P CABG, presents to ED for evaluation. Pt states that he has experienced abdominal pain for the past two weeks with worsening symptoms over the past 5 days. Pain is 5/ 10, diffuse, intermittent, associated with subjective fever, as well as vomiting , and loose stools, no specific exacerbating or alleviating factors. Pt denies chills, BRBPR, syncope, trauma, ingestion of food or water from new or different sources, unintentional weight loss, night sweats, dysphagia, hematuria , productive cough, or recent ill contacts. Pt seen and evaluated in ED and found to have evidence of diverticulitis on CT abdomen/pelvis as well as evidence of sepsis. Pt treated [facility] sepsis protocol. Surgery service consulted in ED. Past History Past Medical History: acute NV, CAD, GERD, hepatitis, hypertension, hyperlipidemia, stroke Past Surgical History: CABG, total hip replacement, total knee replacement Social history: . denies: smoking, alcohol abuse, prescription drug abuse Family history: diabetes, hypertension Medications and Allergies Allergies Allergy/AdvReac Type Severity Reaction Status Date / Time No Known Allergies Allergy Verified 07/30/15 17:02 Home Medications Medication Instructions Recorded Confirmed Last Taken Type AtorvaSTATin [Lipitor] 20 mg PO QHS 04/22/17 04/22/17 04/21/17 History Carvedilol [Coreg] 25 mg PO BID 04/22/17 04/22/17 04/21/17 History Esomeprazole Magnesium [NexIUM] 40 mg PO QDAY 04/22/17 04/22/17 04/21/17 History Ferrous Sulfate [Iron] 325 mg PO DAILY 04/22/17 04/22/17 04/21/17 History Hydrochlorothiazide [HCTZ] 25 mg PO QDAY 04/22/17 04/22/17 04/21/17 History Metoprolol Xl [Metoprolol 50 mg PO QDAY 04/22/17 04/22/17 04/21/17 History SUCCINATE ER TAB] Oxybutynin Chloride [Ditropan Xl] 10 mg PO QDAY 04/22/17 04/22/17 04/21/17 History Rosuvastatin Calcium [Crestor] 20 mg PO QHS 04/22/17 04/22/17 04/21/17 History amLODIPine [Norvasc] 10 mg PO DAILY 04/22/17 04/22/17 04/21/17 History traMADol [Ultram] 50 mg PO Q4HR PRN 04/22/17 04/22/17 04/21/17 History Review of Systems Constitutional: fever, no weight loss, no weight gain, no chills, no sweats, no night sweats Ears, nose, mouth and throat: no ear pain, no ear discharge, no tinnitis, no decreased hearing, no nose pain, no nasal congestion, no nasal discharge, no sinus pressure Cardiovascular: no chest pain, no orthopnea, no palpitations, no rapid/ irregular heart beat, no edema, no syncope, no lightheadedness, no shortness of breath Respiratory: no cough, no cough with sputum, no excessive sputum, no hemoptysis Gastrointestinal: abdominal pain, nausea, vomiting, diarrhea, no constipation, no coffee ground emesis, no BRBPR, no melena, no hematochezia, no loss of appetite, no early satiety Genitourinary Male: no dysuria, no hematuria, no flank pain, no discharge, no urinary frequency, no urinary hesitancy Rectal: no pain, no incontinence, no bleeding Musculoskeletal: no neck stiffness, no neck pain, no shooting arm pain, no arm numbness/tingling, no low back pain, no shooting leg pain Integumentary: no rash, no pruritis, no redness, no sores, no wounds Neurological: no transient paralysis, no paralysis, no weakness, no parathesias , no numbness, no tingling Psychiatric: no anxiety, no memory loss, no change in sleep habits, no sleep disturbances, no insomnia, no hypersomnia, no change in appetite Endocrine: no cold intolerance, no heat intolerance, no polyphagia, no excessive thirst, no polydipsia, no polyuria, no nocturia Hematologic/Lymphatic: no easy bruising, no easy bleeding Allergic/Immunologic: no urticaria, no allergic rhinitis, no wheezing Exam - Constitutional Vitals: Temp Pulse Resp BP Pulse Ox 98.2 F 74 16 95/63 100 04/22/17 10:30 04/22/17 12:00 04/22/17 12:00 04/22/17 12:00 04/22/17 12:00 General appearance: Present: mild distress - EENT Eyes: Present: PERRL ENT: hearing intact, clear oral mucosa - Neck Neck: Present: supple, normal ROM - Respiratory Respiratory effort: normal Respiratory: bilateral: CTA - Cardiovascular Heart Sounds: Present: S1 & S2. Absent: rub, click - Extremities Extremities: pulses symmetrical, No edema Peripheral Pulses: within normal limits - Abdominal General gastrointestinal: Present: soft, non-tender, non-distended, normal bowel sounds Male genitourinary: Present: normal - Integumentary Integumentary: Present: clear, warm, dry - Musculoskeletal Musculoskeletal: gait normal, strength equal bilaterally - Psychiatric Psychiatric: appropriate mood/affect, intact judgment & insight - Neurologic Neurologic: CNII-XII intact, moves all extremities Results - Labs CBC & Chem 7: 04/22/17 05:02 04/22/17 05:02 Labs: Abnormal lab results 04/22/17 04/22/17 04/22/17 Range/Units 05:02 05:02 08:30 WBC 17.8 H (4.5-11.0) K/mm3 RBC 5.87 H (3.65-5.03) M/mm3 Hgb 16.5 H (11.8-15.2) gm/dl Hct 49.6 H (35.5-45.6) % RDW 16.2 H (13.2-15.2) % Lymph % (Auto) 4.9 L (13.4-35.0) % Lymph # 0.9 L (1.2-5.4) K/mm3 Taliafer[place] # 1.0 H (0.0-0.8) K/mm3 Seg Neutrophils % 89.4 H (40.0-70.0) % Seg Neutrophils # 15.9 H (1.8-7.7) K/mm3 Potassium 3.5 L (3.6-5.0) mmol/L BUN 32 H (9-20) mg/dL Glucose 115 H (75-100) mg/dL Total Creatine Kinase 47 L (55-170) units/L Albumin 3.5 L (3.9-5) g/dL Assessment and Plan - Patient Problems (1) Sepsis Current Visit: Yes Status: Acute Qualifiers: Sepsis type: sepsis due to unspecified organism Qualified Code(s): A41.9 - Sepsis, unspecified organism Plan to address problem: IV abx, IVF, serial lactic acid levels, blood cultures, CT Abdomen/Pelvis, urinalysis, (2) Diverticulitis Current Visit: Yes Status: Acute Plan to address problem: Surgery consulted, serial abdominal exam, IV abx, supportive care. (3) HTN (hypertension) Current Visit: No Status: Chronic Qualifiers: Hypertension type: essential hypertension Qualified Code(s): I10 - Essential (primary) hypertension Plan to address problem: Monitor BP q shift, continue medical management. (4) DVT prophylaxis Current Visit: No Status: Acute
--- NOTE | 2017-04-22 15:12 | XRay Report ---
PORTABLE CHEST INDICATION: Abdominal pain, sepsis. Evaluate for pneumonia. COMPARISON: 10/25/2015 FINDINGS: Portable, frontal chest radiograph again demonstrates normal cardiomediastinal silhouette, post CABG changes and clear lungs. EKG leads. Intact bones. CONCLUSION: No acute disease, stable. Thank you for the opportunity to participate in this patient's care.
[2017-04-22] MEDS ORDERED: MILK OF MAGNESIA PO PRN (15:31)
[2017-04-22] MEDS ORDERED: PROVENTIL IH PRN (15:31)
[2017-04-22] MEDS ORDERED: ZOFRAN IV PRN (15:31)
[2017-04-22] MEDS ORDERED: DULCOLAX PR PRN (15:31)
[2017-04-22] MEDS: ULTRAM PO PRN (19:01)
[2017-04-22] MEDS: D5/0.45NS 1,000 ML IV SCH (19:02)
[2017-04-22] MEDS: ZOSYN/NS 4.5GM/100ML 4.5 GM/100 ML VIAL IV SCH (21:25)
[2017-04-22] MEDS: COREG PO SCH (22:00)
[2017-04-22] MEDS ORDERED: NON-FORMULARY (Rosuvastatin Calcium [Crestor] 20 MG) PO SCH (22:00)
--- NOTE | 2017-04-22 22:44 | Consultation ---
REASON FOR CONSULTATION: Abdominal pain. HISTORY OF PRESENT ILLNESS: The patient is a 67-year-old gentleman who presented to the Emergency Room with chief complaints of diarrhea, vomiting, fever, chills and abdominal pain. PAST MEDICAL HISTORY: Pertinent for hepatitis C, MS, ", hypertension and heart disease. PAST SURGICAL HISTORY: Status post coronary artery bypass graft x 3 approximately 10-12 years ago. Left hip replacement x 2 and then removed. surgery secondary to peptic ulcer disease? ALLERGIES: No known allergies. MEDICATIONS: On chart. FAMILY HISTORY: Unknown. SOCIAL HISTORY: States smoked marijuana and heavy alcohol intake, but quit both approximately 23 years ago. PHYSICAL EXAMINATION: GENERAL: At this time reveals the patient to be awake, alert, cooperative, and comfortable, in no acute distress at this time. States his abdominal pain is currently gone. VITAL SIGNS: Shown him to be afebrile with a temperature of 98.2, blood pressure is 108/78, pulse is 74, respirations 16. ABDOMEN: Reveals abdomen to be minimal firmness, but not distended or tender. Bowel sounds are hypoactive. LABORATORY DATA: Lab work at present includes a CBC which shows a white count of 17.8, H and H is 16.5 and 49.6. Electrolytes are essentially normal including a sodium of 147, potassium 3.5, chloride 100, BUN is 32, creatinine is 0.9. LFTs are normal. Total bilirubin is 0.9, AST is 39, ALT is 40, alkaline phosphatase is 110. Lipase is 29. A CT of the abdomen and pelvis has been performed, which I have reviewed with the radiologist. There is significant finding consistent with colitis in the rectal distal sigmoid region. IMPRESSION: At this time is that of a 67-year-old gentleman with 1. Multitude of medical problems as described above. 2. Rule out distal sigmoid rectal colitis. RECOMMENDATIONS: We would recommend to keep the patient n.p.o. at this time. Also, IV fluid hydration, and treatment of dehydration. Also, obtain stool cultures and treat with IV antibiotics for colitis. It does not appear that the patient will need any imminent surgical intervention at this time. However, we will follow with you for the next few days until the patient is able to tolerate a diet. We will follow clinically. Thank you very much for consultation. JOB# [id number] FP/NTS
[2017-04-22 22:59] LABS: Bilirubin,Urine NEG (Negative); Blood,Urine NEG (Negative); Ketones,Urine NEG (Negative); Leukocyte Esterase,Urine NEG (Negative); Mucus,Urine FEW /HPF; Nitrite,Urine NEG (Negative); Protein,Urine <15 mg/dL mg/dL (Negative)
[2017-04-23] MEDS: ZOSYN/NS 4.5GM/100ML 4.5 GM/100 ML VIAL IV SCH (05:55)
[2017-04-23] MEDS ORDERED: NON-FORMULARY (Oxybutynin Chloride [Ditropan Xl] 10 MG) PO SCH (10:00)
[2017-04-23] MEDS: NORVASC PO SCH (10:42)
[2017-04-23] MEDS: HCTZ PO SCH (10:42)
[2017-04-23] MEDS: TOPROL XL PO SCH (10:42)
[2017-04-23] MEDS: FEOSOL PO SCH (10:43)
[2017-04-23] MEDS: DITROPAN XL PO SCH (11:04)
[2017-04-23] MEDS: ULTRAM PO PRN (11:05)
--- NOTE | 2017-04-23 12:11 | Progress Note ---
Assessment and Plan Pt status quo. still c/o diarrhea Abd exam unchanged (minimally firm but non tender). hypoactive BS no new labs noted on chart stool cultures preliminary - C. difficile on Zosyn. surgically stable keep npo except for meds ID eval Selected Entries 04/23/17 08:05 Temperature 98.8 F Pulse Rate 66 Respiratory 16 Rate Blood Pressure 110/68 [Left] Objective Vital Signs - 12hr 04/23/17 04/23/17 08:01 08:05 Temperature 98.8 F Pulse Rate 63 66 Respiratory 16 Rate Blood Pressure 110/68 Blood Pressure 110/68 [Left] O2 Sat by Pulse 98 98 Oximetry - Labs 04/22/17 05:02 04/22/17 05:02
--- NOTE | 2017-04-23 12:37 | Consultation ---
History of Present Illness - Reason for Consult Consult date: 04/23/17 colitis Requesting physician: VIRAJ NORIEGA - History of Present Illness 67 years old male with history of HTN, CVA, [place], GERD, HCV, OA, HLD, BPH, PUD, CAD S/P CABG, admitted on 04/22/2017 due to a week history of multiple too numerous to count loose stools associated with abdominal pain, mainly in the left lower quadrant, 8 out of 10, crampy. He also developed nausea and vomiting multiple times. Denies any recent intake of oral antibiotics. In the emergency room, initial temperature was 99.2, heart rate 92, blood pressure 97/70. Initial white count 17.8. Hemoglobin 16.5. Platelets 149. Creatinine 0.9. LA 1.5. UA is negative. CT scan of the abdomen show the sigmoid colon inflammation wall thickening. Microbiology: Blood cultures: 04/22 ngtd Urine cultures: 04/22 10-100K colonies Current Antimicrobials: Zosyn Previous Antimicrobials: Past History Past Medical History: acute IL, CAD, GERD, hepatitis, hypertension, hyperlipidemia, stroke Past Surgical History: CABG, total hip replacement, total knee replacement Social history: . denies: smoking, alcohol abuse, prescription drug abuse Family history: diabetes, hypertension Medications and Allergies Allergies Allergy/AdvReac Type Severity Reaction Status Date / Time No Known Allergies Allergy Verified 07/30/15 17:02 Home Medications Medication Instructions Recorded Confirmed Last Taken Type AtorvaSTATin [Lipitor] 20 mg PO QHS 04/22/17 04/22/17 04/21/17 History Carvedilol [Coreg] 25 mg PO BID 04/22/17 04/22/17 04/21/17 History Esomeprazole Magnesium [NexIUM] 40 mg PO QDAY 04/22/17 04/22/17 04/21/17 History Ferrous Sulfate [Iron] 325 mg PO DAILY 04/22/17 04/22/17 04/21/17 History Hydrochlorothiazide [HCTZ] 25 mg PO QDAY 04/22/17 04/22/17 04/21/17 History Metoprolol Xl [Metoprolol 50 mg PO QDAY 04/22/17 04/22/17 04/21/17 History SUCCINATE ER TAB] Oxybutynin Chloride [Ditropan Xl] 10 mg PO QDAY 04/22/17 04/22/17 04/21/17 History Rosuvastatin Calcium [Crestor] 20 mg PO QHS 04/22/17 04/22/17 04/21/17 History amLODIPine [Norvasc] 10 mg PO DAILY 04/22/17 04/22/17 04/21/17 History traMADol [Ultram] 50 mg PO Q4HR PRN 04/22/17 04/22/17 04/21/17 History Active Meds: Active Medications Acetaminophen (Tylenol) 650 mg PO Q4H PRN PRN Reason: Pain MILD(1-3)/Fever >100.5/DARBY Albuterol (Proventil) 2.5 mg IH Q4HRT PRN PRN Reason: Shortness Of Breath Amlodipine Besylate (Norvasc) 10 mg PO DAILY [facility] Last Admin: 04/23/17 10:42 Dose: 10 mg Atorvastatin Calcium (Lipitor) 20 mg PO QHS [facility] [place] Last Admin: 04/22/17 21:29 Dose: 20 mg Atorvastatin Calcium (Lipitor) 40 mg PO QHS [facility] [place] Last Admin: 04/22/17 21:29 Dose: 40 mg Bisacodyl (Dulcolax) 10 mg AK QDAY PRN PRN Reason: Constipation unrelieved by MOM Carvedilol (Coreg) 25 mg PO BID [facility] [place] Last Admin: 04/22/17 22:00 Dose: Not Given Ferrous Sulfate (Feosol) 325 mg PO DAILY [facility] [place] Last Admin: 04/23/17 10:43 Dose: 325 mg Hydrochlorothiazide (Hctz) 25 mg PO QDAY [facility] [place] Last Admin: 04/23/17 10:42 Dose: 25 mg Dextrose/Sodium Chloride (D5/0.45ns) 1,000 mls @ 42 mls/hr IV DIRECT [facility] [place] Last Admin: 04/22/17 19:02 Dose: 42 mls/hr Magnesium Hydroxide (Milk Of Magnesia) 30 ml PO Q4H PRN PRN Reason: Constipation Metoprolol Succinate (Toprol Xl) 50 mg PO QDAY [facility] [place] Last Admin: 04/23/17 10:42 Dose: 50 mg Miscellaneous Medication (Esomeprazole Magnesium [Nexium]) 40 mg PO QDAY [facility] [place] Ondansetron HCl (Zofran) 4 mg IV Q8H PRN PRN Reason: N/V unrelieved by Reglan Last Admin: 04/22/17 19:01 Dose: 4 mg Oxybutynin Chloride (Ditropan Xl) 10 mg PO QDAY [facility] Last Admin: 04/23/17 11:04 Dose: 10 mg Tramadol HCl (Ultram) 50 mg PO Q4HR PRN PRN Reason: Pain Last Admin: 04/23/17 11:05 Dose: 50 mg Review of Systems All systems: negative (as per HPI rest neg) Physical Examination - Physical Exam Narrative exam: General appearance: Alert in NAD, conversant Eyes: anicteric sclerae, moist conjunctivae; no lid-lag; PERRLA HENT: Atraumatic; oropharynx clear Neck: Trachea midline; supple, no thyromegaly or lymphadenopathy Lungs: CTA, with normal respiratory effort and no intercostal retractions CV: RRR, no murmurs Abdomen: Soft, mild TTP diffusely Extremities: No peripheral edema or extremity lymphadenopathy Skin: Normal temperature, turgor and texture; no rash, ulcers or subcutaneous nodules Psych: Appropriate affect, alert and oriented to person, place and time. Neuro: alert and oriented x 3. Moving all extermities Lines: No CVL / PICC - Constitutional Vitals: Vital Signs Temp Pulse Resp BP Pulse Ox 98.8 F 66 16 110/68 98 04/23/17 08:05 04/23/17 08:05 04/23/17 08:05 04/23/17 08:05 04/23/17 08:05 Temperature -Last 24 Hours Temperature 98.8 F Temperature 97.5 F Temperature 97.2 F Temperature 97.2 F Temperature 98.1 F Results - Labs CBC & Chem 7: 04/22/17 05:02 04/22/17 05:02 Labs: Abnormal lab results 04/22/17 Range/Units 22:00 Ur Specific [place] 1.034 H (1.003-1.030) Assessment and Plan Assessment: 1) Sepsis: Present on admission, manifested by low grade fever, tachycardia, hypotension, leukocytosis , increased lactate. Etiology most likely colitis. 2) Colitis: CT scan of the abdomen show the sigmoid colon inflammation wall thickening. Should r/o C diff Plan: -stop zosyn -avoid broad spectrum antibiotics -start metronidazole 500 mg IV q8h -follow-up C diff stool -contact isolation -if C diff confirmed please add PO vancomycin 125 QID total [address] oNriega for your consultation, will follow up with you. Georgia De Dios MD Infectious Diseases Specialist [facility], [place], [facility] ([facility] M [phone] O [phone]
[2017-04-23] MEDS: FLAGYL 500 MG/100 ML 500 MG/100 ML BAG IV SCH (14:00)
--- NOTE | 2017-04-23 15:47 | Progress Note ---
Assessment and Plan Assessment and plan: Patient is a 67 years old male with history of HTN, CVA, [place], GERD, HCV, OA, HLD , BPH, PUD, CAD S/P CABG, admitted on 04/22/2017 due to a week history of multiple too numerous to count loose stools associated with abdominal pain, mainly in the left lower quadrant, 8 out of 10, crampy. He also developed nausea and vomiting multiple times which has since resolved. Denies any recent intake of oral antibiotics . CT scan of the abdomen show the sigmoid colon inflammation wall thickening. Sepsis-POA * presumed C.Diff. cultures pending, ID following, contact isolation, metronidazole 500 mg IV every 6 in hours Diverticulitis * With no peforation, surgery input noted, continue pain control, abx, NPO, start diet with clear liquids in AM HTN * Continue current management. Hypokalemia * Replaced. DVT/GI Prophy Plan of care discussed with patient and also with DR Mercedes-YOSSI specialist. History Interval history: Patient seen and examined this am, states he is hungry. still with abdominal pain 3/10 in intensity no radiating, aggravating or alleviating etiology noted, no further diarreha. Denies chest pain, nausea, vomiting or fever. Hospitalist Physical - Physical exam Narrative exam: VITAL SIGNS: Reviewed. GENERAL: The patient appeared well nourished and normally developed. Vital signs as documented. HEAD: No signs of head trauma. EYES: Pupils are equal. Extraocular motions intact. EARS: Hearing grossly intact. MOUTH: Oropharynx is normal. NECK: No adenopathy, no JVD. CHEST: Chest with clear breath sounds bilaterally. No wheezes, rales, or rhonchi. CARDIAC: Regular rate and rhythm. S1 and S2, without murmurs, gallops, or rubs. VASCULAR: No Edema. Peripheral pulses normal and equal in all extremities. ABDOMEN: Soft, Tender. No sign of distention. No rebound or guarding, and no masses palpated. Bowel Sounds normal. MUSCULOSKELETAL: Good range of motion of all major joints. Extremities without clubbing, cyanosis or edema. NEUROLOGIC EXAM: Alert and oriented x 3. No focal sensory or strength deficits. Speech normal. Follows commands. PSYCHIATRIC: Mood normal. SKIN: No rash or lesions. - Constitutional Vitals: Temp Pulse Resp BP Pulse Ox 98.8 F 66 16 110/68 98 04/23/17 08:05 04/23/17 08:05 04/23/17 08:05 04/23/17 08:05 04/23/17 08:05 General appearance: Present: mild distress Results - Labs CBC & Chem 7: 04/22/17 05:02 04/22/17 05:02 Labs: Laboratory Last Values WBC 17.8 K/mm3 (4.5-11.0) H 04/22/17 05:02 RBC 5.87 M/mm3 (3.65-5.03) H 04/22/17 05:02 Hgb 16.5 gm/dl (11.8-15.2) H 04/22/17 05:02 Hct 49.6 % (35.5-45.6) H 04/22/17 05:02 MCV 85 fl (84-94) 04/22/17 05:02 MCH 28 pg (28-32) 04/22/17 05:02 MCHC 33 % (32-34) 04/22/17 05:02 RDW 16.2 % (13.2-15.2) H 04/22/17 05:02 Plt Count 149 K/mm3 (140-440) 04/22/17 05:02 Lymph % (Auto) 4.9 % (13.4-35.0) L 04/22/17 05:02 Taliaferro % (Auto) 5.4 % (0.0-7.3) 04/22/17 05:02 Eos % (Auto) 0.1 % (0.0-4.3) 04/22/17 05:02 Baso % (Auto) 0.2 % (0.0-1.8) 04/22/17 05:02 Lymph # 0.9 K/mm3 (1.2-5.4) L 04/22/17 05:02 [place]ro # 1.0 K/mm3 (0.0-0.8) H 04/22/17 05:02 Eos # 0.0 K/mm3 (0.0-0.4) 04/22/17 05:02 Baso # 0.0 K/mm3 (0.0-0.1) 04/22/17 05:02 Seg Neutrophils % 89.4 % (40.0-70.0) H 04/22/17 05:02 Seg Neutrophils # 15.9 K/mm3 (1.8-7.7) H 04/22/17 05:02 Sodium 142 mmol/L (137-145) 04/22/17 05:02 Potassium 3.5 mmol/L (3.6-5.0) L 04/22/17 05:02 Chloride 100.6 mmol/L (98-107) 04/22/17 05:02 Carbon Dioxide 22 mmol/L (22-30) 04/22/17 05:02 Anion Gap 23 mmol/L 04/22/17 05:02 BUN 32 mg/dL (9-20) H 04/22/17 05:02 Creatinine 0.9 mg/dL (0.8-1.5) 04/22/17 05:02 Estimated GFR > 60 ml/min 04/22/17 05:02 BUN/Creatinine Ratio 36 % 04/22/17 05:02 Glucose 115 mg/dL (75-100) H 04/22/17 05:02 Lactic Acid 1.50 mmol/L (0.7-2.0) 04/22/17 10:48 Calcium 8.7 mg/dL (8.4-10.2) 04/22/17 05:02 Total Bilirubin 0.90 mg/dL (0.1-1.2) 04/22/17 05:02 AST 39 units/L (5-40) 04/22/17 05:02 ALT 40 units/L (7-56) 04/22/17 05:02 Alkaline Phosphatase 110 units/L (35-129) 04/22/17 05:02 Total Creatine Kinase 47 units/L (55-170) L 04/22/17 08:30 Total Protein 6.3 g/dL (6.3-8.2) 04/22/17 05:02 Albumin 3.5 g/dL (3.9-5) L 04/22/17 05:02 Albumin/Globulin Ratio 1.3 % 04/22/17 05:02 Lipase 29 units/L (13-60) 04/22/17 05:02 Urine Color Yellow (Yellow) 04/22/17 22:00 Urine Turbidity Clear (Clear) 04/22/17 22:00 Urine pH 5.0 (5.0-7.0) 04/22/17 22:00 Ur Specific [place] 1.034 (1.003-1.030) H 04/22/17 22:00 Urine Protein <15 mg/dl mg/dL (Negative) 04/22/17 22:00 Urine Glucose (UA) Neg mg/dL (Negative) 04/22/17 22:00 Urine Ketones Neg mg/dL (Negative) 04/22/17 22:00 Urine Blood Neg (Negative) 04/22/17 22:00 Urine Nitrite Neg (Negative) 04/22/17 22:00 Urine Bilirubin Neg (Negative) 04/22/17 22:00 Urine Urobilinogen 4.0 mg/dL (<2.0) 04/22/17 22:00 Ur Leukocyte Esterase Neg (Negative) 04/22/17 22:00 Urine WBC (Auto) 1.0 /HPF (0.0-6.0) 04/22/17 22:00 Urine RBC (Auto) 2.0 /HPF (0.0-6.0) 04/22/17 22:00 U Epithel Cells (Auto) < 1.0 /HPF (0-13.0) 04/22/17 22:00 Urine Bacteria (Auto) 1+ /HPF (Negative) 04/22/17 08:38 Hyaline Casts 1 /LPF 04/22/17 05:06 Urine Mucus Few /HPF 04/22/17 22:00 Blood Type O POSITIVE 04/22/17 19:15 Antibody Screen Negative 04/22/17 19:15 - Imaging and Cardiology CT scan - abdomen: image reviewed (INFLAMMATION OF RECTOSIGMOID AREA)
[2017-04-24] MEDS: D5/0.45NS 1,000 ML IV SCH (00:12)
[2017-04-24] MEDS: COREG PO SCH ×4 (01:53→21:53)
[2017-04-24] MEDS: FLAGYL 500 MG/100 ML 500 MG/100 ML BAG IV SCH ×4 (01:53→21:44)
[2017-04-24 07:10] LABS: Basophils % (Auto) 0.2 % (0.0-1.8); Eosinophils % (Auto) 1.9 % (0.0-4.3); Hemoglobin 13.6 gm/dl (11.8-15.2); Mean Corpuscular HGB Conc 33 % (32-34); Mean Corpuscular Hemoglobin 28 pg (28-32); Mean Corpuscular Volume 85 fl (84-94); Platelet Count 122 K/mm3 (140-440); Red Blood Count 4.82 M/mm3 (3.65-5.03); Red Cell Distribution Width 16.2 % (13.2-15.2); White Blood Count 6.3 K/mm3 (4.5-11.0)
[2017-04-24 07:30] LABS: Alanine Aminotransferase 26 units/L (7-56); Albumin 2.8 g/dL (3.9-5); Alkaline Phosphatase 76 units/L (35-129); Anion Gap 15 mmol/L; BUN/Creatinine Ratio 18; Blood Urea Nitrogen 11 mg/dL (9-20); Calcium 8.1 mg/dL (8.4-10.2); Carbon Dioxide 25 mmol/L (22-30); Chloride 101.6 mmol/L (98-107); Glucose 86 mg/dL (75-100); Sodium 139 mmol/L (137-145); Total Protein 5.6 g/dL (6.3-8.2)
[2017-04-24 07:34] LABS: Potassium 2.8 mmol/L (3.6-5.0)
--- NOTE | 2017-04-24 08:31 | Progress Note ---
Assessment and Plan Pt feeling much better. diarrhea "much improved". neg abd pain. neg fever Abd soft now. non tender wbc now wnl ID eval appreciated correct K+ IMTIAZ attempt cl liq diet. hold if diarrhea recurs continue antibiotics as per ID Selected Entries 04/23/17 04/24/17 18:14 01:53 Temperature 97.7 F Pulse Rate 52 L Blood Pressure 120/80 Laboratory Tests 04/22/17 04/24/17 04/24/17 05:02 06:47 06:47 WBC 17.8 H 6.3 Hgb 13.6 Hct 41.0 D Sodium 139 Potassium 2.8 L* Chloride 101.6 Carbon Dioxide 25 BUN 11 Creatinine 0.6 L Objective Vital Signs - 12hr 04/24/17 01:53 Pulse Rate 52 L Blood Pressure 120/80 - Labs 04/24/17 06:47 04/24/17 06:47 Diabetes panel 04/24/17 Range/Units 06:47 Sodium 139 (137-145) mmol/L Potassium 2.8 L* (3.6-5.0) mmol/L Chloride 101.6 (98-107) mmol/L Carbon Dioxide 25 (22-30) mmol/L BUN 11 (9-20) mg/dL Creatinine 0.6 L (0.8-1.5) mg/dL Glucose 86 (75-100) mg/dL Calcium 8.1 L (8.4-10.2) mg/dL AST 27 (5-40) units/L ALT 26 (7-56) units/L Alkaline Phosphatase 76 (35-129) units/L Total Protein 5.6 L (6.3-8.2) g/dL Albumin 2.8 L (3.9-5) g/dL Calcium panel 04/24/17 Range/Units 06:47 Calcium 8.1 L (8.4-10.2) mg/dL Albumin 2.8 L (3.9-5) g/dL Pituitary panel 04/24/17 Range/Units 06:47 Sodium 139 (137-145) mmol/L Potassium 2.8 L* (3.6-5.0) mmol/L Chloride 101.6 (98-107) mmol/L Carbon Dioxide 25 (22-30) mmol/L BUN 11 (9-20) mg/dL Creatinine 0.6 L (0.8-1.5) mg/dL Glucose 86 (75-100) mg/dL Calcium 8.1 L (8.4-10.2) mg/dL Adrenal panel 04/24/17 Range/Units 06:47 Sodium 139 (137-145) mmol/L Potassium 2.8 L* (3.6-5.0) mmol/L Chloride 101.6 (98-107) mmol/L Carbon Dioxide 25 (22-30) mmol/L BUN 11 (9-20) mg/dL Creatinine 0.6 L (0.8-1.5) mg/dL Glucose 86 (75-100) mg/dL Calcium 8.1 L (8.4-10.2) mg/dL Total Bilirubin 0.60 (0.1-1.2) mg/dL AST 27 (5-40) units/L ALT 26 (7-56) units/L Alkaline Phosphatase 76 (35-129) units/L Total Protein 5.6 L (6.3-8.2) g/dL Albumin 2.8 L (3.9-5) g/dL
--- NOTE | 2017-04-24 09:52 | Progress Note ---
Assessment and Plan Assessment and plan: Assessment and Plan Assessment and plan: Patient is a 67 years old male with history of HTN, CVA, ID, GERD, HCV, OA, HLD , BPH, PUD, CAD S/P CABG, admitted on 04/22/2017 due to a week history of multiple too numerous to count loose stools associated with abdominal pain, mainly in the left lower quadrant, 8 out of 10, crampy. He also developed nausea and vomiting multiple times which has since resolved. Denies any recent intake of oral antibiotics . CT scan of the abdomen show the sigmoid colon inflammation wall thickening. Sepsis-POA * presumed C.Diff. cultures pending, ID following, contact isolation, metronidazole 500 mg IV every 6 in hours Diverticulitis * With no peforation, surgery input noted, continue pain control, abx, NPO, start diet with clear liquids in AM HTN * Continue current management. Hypokalemia * Replaced. DVT/GI Prophy Plan of care discussed with patient. History Interval history: Continues to have diarrhea-4 Loose stools today Hospitalist Physical - Constitutional Vitals: Temp Pulse Resp BP Pulse Ox 97.8 F 52 L 16 120/80 98 04/24/17 00:32 04/24/17 01:53 04/24/17 00:32 04/24/17 01:53 04/24/17 00:32 General appearance: Present: no acute distress, severe distress - EENT Eyes: Present: PERRL, EOM intact - Neck Neck: Present: supple, normal ROM - Respiratory Respiratory effort: normal Respiratory: bilateral: CTA - Cardiovascular Heart rate: 70 Rhythm: regular - Extremities Extremities: no ischemia, pulses intact - Abdominal General gastrointestinal: soft, non-tender, non-distended, normal bowel sounds - Integumentary Integumentary: Present: clear, warm, dry - Psychiatric Psychiatric: appropriate mood/affect, intact judgment & insight, memory intact, cooperative - Neurologic Neurologic: CNII-XII intact, gait normal Results - Labs CBC & Chem 7: 04/24/17 06:47 04/25/17 07:13 Labs: Laboratory Last Values WBC 6.3 K/mm3 (4.5-11.0) 04/24/17 06:47 RBC 4.82 M/mm3 (3.65-5.03) 04/24/17 06:47 Hgb 13.6 gm/dl (11.8-15.2) 04/24/17 06:47 Hct 41.0 % (35.5-45.6) D 04/24/17 06:47 MCV 85 fl (84-94) 04/24/17 06:47 MCH 28 pg (28-32) 04/24/17 06:47 MCHC 33 % (32-34) 04/24/17 06:47 RDW 16.2 % (13.2-15.2) H 04/24/17 06:47 Plt Count 122 K/mm3 (140-440) L 04/24/17 06:47 Lymph % (Auto) 13.9 % (13.4-35.0) 04/24/17 06:47 Atkinson % (Auto) 8.3 % (0.0-7.3) H 04/24/17 06:47 Eos % (Auto) 1.9 % (0.0-4.3) 04/24/17 06:47 Baso % (Auto) 0.2 % (0.0-1.8) 04/24/17 06:47 Lymph # 0.9 K/mm3 (1.2-5.4) L 04/24/17 06:47 Atkinson # 0.5 K/mm3 (0.0-0.8) 04/24/17 06:47 Eos # 0.1 K/mm3 (0.0-0.4) 04/24/17 06:47 Baso # 0.0 K/mm3 (0.0-0.1) 04/24/17 06:47 Seg Neutrophils % 75.7 % (40.0-70.0) H 04/24/17 06:47 Seg Neutrophils # 4.7 K/mm3 (1.8-7.7) 04/24/17 06:47 Sodium 139 mmol/L (137-145) 04/24/17 06:47 Potassium 2.8 mmol/L (3.6-5.0) L* 04/24/17 06:47 Chloride 101.6 mmol/L (98-107) 04/24/17 06:47 Carbon Dioxide 25 mmol/L (22-30) 04/24/17 06:47 Anion Gap 15 mmol/L 04/24/17 06:47 BUN 11 mg/dL (9-20) 04/24/17 06:47 Creatinine 0.6 mg/dL (0.8-1.5) L 04/24/17 06:47 Estimated GFR > 60 ml/min 04/24/17 06:47 BUN/Creatinine Ratio 18 % 04/24/17 06:47 Glucose 86 mg/dL (75-100) 04/24/17 06:47 Lactic Acid 1.50 mmol/L (0.7-2.0) 04/22/17 10:48 Calcium 8.1 mg/dL (8.4-10.2) L 04/24/17 06:47 Total Bilirubin 0.60 mg/dL (0.1-1.2) 04/24/17 06:47 AST 27 units/L (5-40) 04/24/17 06:47 ALT 26 units/L (7-56) 04/24/17 06:47 Alkaline Phosphatase 76 units/L (35-129) 04/24/17 06:47 Total Creatine Kinase 47 units/L (55-170) L 04/22/17 08:30 Total Protein 5.6 g/dL (6.3-8.2) L 04/24/17 06:47 Albumin 2.8 g/dL (3.9-5) L 04/24/17 06:47 Albumin/Globulin Ratio 1.0 % 04/24/17 06:47 Lipase 29 units/L (13-60) 04/22/17 05:02 Urine Color Yellow (Yellow) 04/22/17 22:00 Urine Turbidity Clear (Clear) 04/22/17 22:00 Urine pH 5.0 (5.0-7.0) 04/22/17 22:00 Ur Specific Hunt 1.034 (1.003-1.030) H 04/22/17 22:00 Urine Protein <15 mg/dl mg/dL (Negative) 04/22/17 22:00 Urine Glucose (UA) Neg mg/dL (Negative) 04/22/17 22:00 Urine Ketones Neg mg/dL (Negative) 04/22/17 22:00 Urine Blood Neg (Negative) 04/22/17 22:00 Urine Nitrite Neg (Negative) 04/22/17 22:00 Urine Bilirubin Neg (Negative) 04/22/17 22:00 Urine Urobilinogen 4.0 mg/dL (<2.0) 04/22/17 22:00 Ur Leukocyte Esterase Neg (Negative) 04/22/17 22:00 Urine WBC (Auto) 1.0 /HPF (0.0-6.0) 04/22/17 22:00 Urine RBC (Auto) 2.0 /HPF (0.0-6.0) 04/22/17 22:00 U Epithel Cells (Auto) < 1.0 /HPF (0-13.0) 04/22/17 22:00 Urine Bacteria (Auto) 1+ /HPF (Negative) 04/22/17 08:38 Hyaline Casts 1 /LPF 04/22/17 05:06 Urine Mucus Few /HPF 04/22/17 22:00 Blood Type O POSITIVE 04/22/17 19:15 Antibody Screen Negative 04/22/17 19:15
[2017-04-24] MEDS ORDERED: K-DUR PO ONE ×2 (10:13→14:00)
[2017-04-24] MEDS: DITROPAN XL PO SCH (10:15)
[2017-04-24] MEDS: NORVASC PO SCH (10:15)
[2017-04-24] MEDS: FEOSOL PO SCH (10:15)
[2017-04-24] MEDS: TOPROL XL PO SCH (10:15)
[2017-04-24] MEDS: HCTZ PO SCH (10:16)
[2017-04-24] MEDS: ULTRAM PO PRN (16:51)
[2017-04-25] MEDS: D5/0.45NS 1,000 ML IV SCH (01:47)
[2017-04-25] MEDS: FLAGYL 500 MG/100 ML 500 MG/100 ML BAG IV SCH ×3 (06:02→22:04)
[2017-04-25 07:52] LABS: Anion Gap 16 mmol/L; BUN/Creatinine Ratio 10; Blood Urea Nitrogen 6 mg/dL (9-20); Calcium 8.4 mg/dL (8.4-10.2); Carbon Dioxide 26 mmol/L (22-30); Chloride 102.2 mmol/L (98-107); Glucose 106 mg/dL (75-100); Potassium 3.4 mmol/L (3.6-5.0); Sodium 141 mmol/L (137-145)
[2017-04-25] MEDS: NORVASC PO SCH (09:47)
[2017-04-25] MEDS: HCTZ PO SCH (09:47)
[2017-04-25] MEDS: TOPROL XL PO SCH (09:48)
[2017-04-25] MEDS: DITROPAN XL PO SCH (09:48)
[2017-04-25] MEDS: COREG PO SCH ×2 (09:48→22:03)
[2017-04-25] MEDS: FEOSOL PO SCH (09:49)
--- NOTE | 2017-04-25 10:48 | Progress Note ---
Assessment and Plan Pt states "feeling better". kailyn cl liq. no diarrhea Abd soft. non tender surgically stable K+ improved advance to full liq diet Selected Entries 04/25/17 04/25/17 07:45 09:48 Temperature 98.0 F Pulse Rate 61 Respiratory 16 Rate Blood Pressure 121/78 Laboratory Tests 04/24/17 04/25/17 06:47 07:13 Potassium 2.8 L* 3.4 L D Objective Vital Signs - 12hr 04/25/17 04/25/17 04/25/17 07:45 09:47 09:48 Temperature 98.0 F Pulse Rate 61 Respiratory 16 Rate Blood Pressure 121/78 121/78 121/78 O2 Sat by Pulse 99 Oximetry - Labs 04/24/17 06:47 04/25/17 07:13 Diabetes panel 04/25/17 Range/Units 07:13 Sodium 141 (137-145) mmol/L Potassium 3.4 L D (3.6-5.0) mmol/L Chloride 102.2 (98-107) mmol/L Carbon Dioxide 26 (22-30) mmol/L BUN 6 L (9-20) mg/dL Creatinine 0.6 L (0.8-1.5) mg/dL Glucose 106 H (75-100) mg/dL Calcium 8.4 (8.4-10.2) mg/dL Calcium panel 04/25/17 Range/Units 07:13 Calcium 8.4 (8.4-10.2) mg/dL Pituitary panel 04/25/17 Range/Units 07:13 Sodium 141 (137-145) mmol/L Potassium 3.4 L D (3.6-5.0) mmol/L Chloride 102.2 (98-107) mmol/L Carbon Dioxide 26 (22-30) mmol/L BUN 6 L (9-20) mg/dL Creatinine 0.6 L (0.8-1.5) mg/dL Glucose 106 H (75-100) mg/dL Calcium 8.4 (8.4-10.2) mg/dL Adrenal panel 04/25/17 Range/Units 07:13 Sodium 141 (137-145) mmol/L Potassium 3.4 L D (3.6-5.0) mmol/L Chloride 102.2 (98-107) mmol/L Carbon Dioxide 26 (22-30) mmol/L BUN 6 L (9-20) mg/dL Creatinine 0.6 L (0.8-1.5) mg/dL Glucose 106 H (75-100) mg/dL Calcium 8.4 (8.4-10.2) mg/dL
--- NOTE | 2017-04-25 13:36 | Progress Note ---
Assessment and Plan Patient is a 67 years old male with history of HTN, CVA, [place], GERD, HCV, OA, HLD , BPH, PUD, CAD S/P CABG, admitted on 04/22/2017 due to a week history of multiple too numerous to count loose stools associated with abdominal pain, mainly in the left lower quadrant, 8 out of 10, crampy. He also developed nausea and vomiting multiple times which has since resolved. Denies any recent intake of oral antibiotics . CT scan of the abdomen show the sigmoid colon inflammation wall thickening. - Sepsis-POA presumed C.Diff. cultures pending, ID following, contact isolation, metronidazole 500 mg IV every 6 in hours. Stool culture and blood culture so far negative - Diverticulitis With no peforation, surgery input noted, continue pain control, abx, NPO, start diet with clear liquids in AM - HTN Continue current management. - Hypokalemia Supplement further. - DVT/GI Prophy with lovenox and pepcid Plan of care discussed with patient. Subjective Date of service: 04/25/17 Principal diagnosis: Sepsis, colitis, diarrhea Interval history: Still having diarrhea. No fever. Denies any abdominal pain or Objective - Constitutional Vitals: Vital Signs - 12hr 04/25/17 04/25/17 04/25/17 07:45 09:47 09:48 Temperature 98.0 F Pulse Rate 61 Respiratory 16 Rate Blood Pressure 121/78 121/78 121/78 O2 Sat by Pulse 99 Oximetry General appearance: Present: no acute distress, well-nourished - EENT Eyes: PERRL, EOM intact - Neck Neck: supple, normal ROM - Respiratory Respiratory effort: normal Respiratory: bilateral: CTA - Cardiovascular Rhythm: regular Heart Sounds: Present: S1 & S2. Absent: gallop, rub Extremities: pulses intact, No edema, normal color, Full ROM - Gastrointestinal General gastrointestinal: Present: soft, non-tender, non-distended, normal bowel sounds - Integumentary Integumentary: clear, warm, dry - Musculoskeletal Musculoskeletal: 1, strength equal bilaterally - Neurologic Neurologic: moves all extremities - Psychiatric Psychiatric: memory intact, appropriate mood/affect, intact judgment & insight - Labs CBC & Chem 7: 04/24/17 06:47 04/25/17 07:13 Labs: Abnormal lab results 04/25/17 Range/Units 07:13 Potassium 3.4 L D (3.6-5.0) mmol/L BUN 6 L (9-20) mg/dL Creatinine 0.6 L (0.8-1.5) mg/dL Glucose 106 H (75-100) mg/dL
[2017-04-25] MEDS ORDERED: PEPCID IV SCH (14:00)
[2017-04-25] MEDS: HEPARIN SUB-Q SCH ×2 (14:24→22:02)
[2017-04-25] MEDS: ULTRAM PO PRN (15:17)
[2017-04-25] MEDS: KCL 10MEQ/100ML 10 MEQ/100 ML BAG IV SCH ×2 (17:46→22:05)
[2017-04-25] MEDS: TYLENOL PO PRN (18:42)
[2017-04-25] MEDS: NON-FORMULARY (Esomeprazole Magnesium [Nexium] 40 MG) PO SCH ×3 (19:20→19:49)
[2017-04-26] MEDS: FLAGYL 500 MG/100 ML 500 MG/100 ML BAG IV SCH ×3 (06:33→21:53)
[2017-04-26] MEDS: HEPARIN SUB-Q SCH ×3 (06:34→22:59)
[2017-04-26 07:29] LABS: Hemoglobin 14.3 gm/dl (11.8-15.2); Mean Corpuscular HGB Conc 33 % (32-34); Mean Corpuscular Hemoglobin 27 pg (28-32); Mean Corpuscular Volume 84 fl (84-94); Platelet Count 152 K/mm3 (140-440); Red Blood Count 5.22 M/mm3 (3.65-5.03); Red Cell Distribution Width 16.2 % (13.2-15.2); White Blood Count 5.1 K/mm3 (4.5-11.0)
[2017-04-26 07:49] LABS: Alanine Aminotransferase 31 units/L (7-56); Albumin 2.9 g/dL (3.9-5); Alkaline Phosphatase 79 units/L (35-129); Anion Gap 17 mmol/L; BUN/Creatinine Ratio 10; Blood Urea Nitrogen 6 mg/dL (9-20); Calcium 8.3 mg/dL (8.4-10.2); Carbon Dioxide 26 mmol/L (22-30); Chloride 100.8 mmol/L (98-107); Glucose 110 mg/dL (75-100); Potassium 3.4 mmol/L (3.6-5.0); Sodium 140 mmol/L (137-145); Total Protein 5.8 g/dL (6.3-8.2)
[2017-04-26 08:30] LABS: Basophils % (Manual) 0 % (0.0-1.8); Blastocytes % (Manual) 0 %; RBC Morphology Normal
[2017-04-26 08:31] LABS: Diff Status Complete; Platelet Estimate Consistent w Auto
--- NOTE | 2017-04-26 10:39 | Progress Note ---
Assessment and Plan Assessment: 1) Sepsis:resolved. Etiology most likely colitis. 2) Colitis: CT scan of the abdomen show the sigmoid colon inflammation wall thickening. Stool C diff negative. Improved. Plan: -stop zosyn -stop metronidazole -stop contact isolation -monitor off antibiotics Thank you Dr Noriega for your consultation, will follow up with you. Georgia De Dios MD Infectious Diseases Specialist [facility] ([facility]) M [phone] O [phone] Subjective Date of service: 04/26/17 Principal diagnosis: Sepsis, colitis, diarrhea Interval history: Feels better, diarrhea resolved. No abdominal pain, wants to go home. Microbiology: Blood cultures: 04/22 ngtd Urine cultures: 04/22 10-100K colonies Stool C diff neg WBC positive Occult blood positive Current Antimicrobials: flagyl 04/23 Previous Antimicrobials: Zosyn Objective - Exam Narrative Exam: General appearance: Alert in NAD, conversant Eyes: anicteric sclerae, moist conjunctivae; no lid-lag; PERRLA HENT: Atraumatic; oropharynx clear Neck: Trachea midline; supple, no thyromegaly or lymphadenopathy Lungs: CTA CV: RRR, Abdomen: Soft,non tender Extremities: No peripheral edema or extremity lymphadenopathy Skin: Normal temperature, turgor and texture; no rash, ulcers or subcutaneous nodules Psych: Appropriate affect, alert and oriented to person, place and time. Neuro: alert and oriented x 3. Moving all extermities Lines: No CVL / PICC - Constitutional Vitals: Vital Signs Temp Pulse Resp BP Pulse Ox 98.0 F 61 19 134/87 98 04/26/17 07:38 04/26/17 07:38 04/26/17 07:38 04/26/17 07:38 04/26/17 07:38 Temperature -Last 24 Hours Temperature 98.0 F Temperature 97.8 F Temperature 98.0 F - Labs CBC & Chem 7: 04/26/17 06:45 04/26/17 06:45 Labs: Abnormal lab results 04/26/17 04/26/17 Range/Units 06:45 06:45 RBC 5.22 H (3.65-5.03) M/mm3 MCH 27 L (28-32) pg RDW 16.2 H (13.2-15.2) % Monocytes % (Manual) 10.0 H (0.0-7.3) % Potassium 3.4 L (3.6-5.0) mmol/L BUN 6 L (9-20) mg/dL Creatinine 0.6 L (0.8-1.5) mg/dL Glucose 110 H (75-100) mg/dL Calcium 8.3 L (8.4-10.2) mg/dL Magnesium 1.50 L (1.7-2.3) mg/dL Total Protein 5.8 L (6.3-8.2) g/dL Albumin 2.9 L (3.9-5) g/dL
--- NOTE | 2017-04-26 11:22 | Progress Note ---
Assessment and Plan Pt feeling well without compl. kailyn full liq. neg diarrhea Abd soft, non tender surgically stable advanace to solid diet as kailyn will need GI eval for colonoscopy in a few wks once acute colitis resolves Selected Entries 04/26/17 07:38 Temperature 98.0 F Pulse Rate 61 Respiratory 19 Rate Blood Pressure 134/87 Laboratory Tests 04/26/17 04/26/17 06:45 06:45 WBC 5.1 Hgb 14.3 Hct 44.0 Sodium 140 Potassium 3.4 L Chloride 100.8 BUN 6 L Creatinine 0.6 L Glucose 110 H Total Bilirubin 0.50 AST 32 ALT 31 Alkaline Phosphatase 79 Objective Vital Signs - 12hr 04/26/17 07:38 Temperature 98.0 F Pulse Rate 61 Respiratory 19 Rate Blood Pressure 134/87 O2 Sat by Pulse 98 Oximetry - Labs 04/26/17 06:45 04/26/17 06:45 Diabetes panel 04/26/17 Range/Units 06:45 Sodium 140 (137-145) mmol/L Potassium 3.4 L (3.6-5.0) mmol/L Chloride 100.8 (98-107) mmol/L Carbon Dioxide 26 (22-30) mmol/L BUN 6 L (9-20) mg/dL Creatinine 0.6 L (0.8-1.5) mg/dL Glucose 110 H (75-100) mg/dL Calcium 8.3 L (8.4-10.2) mg/dL AST 32 (5-40) units/L ALT 31 (7-56) units/L Alkaline Phosphatase 79 (35-129) units/L Total Protein 5.8 L (6.3-8.2) g/dL Albumin 2.9 L (3.9-5) g/dL Calcium panel 04/26/17 Range/Units 06:45 Calcium 8.3 L (8.4-10.2) mg/dL Albumin 2.9 L (3.9-5) g/dL Pituitary panel 04/26/17 Range/Units 06:45 Sodium 140 (137-145) mmol/L Potassium 3.4 L (3.6-5.0) mmol/L Chloride 100.8 (98-107) mmol/L Carbon Dioxide 26 (22-30) mmol/L BUN 6 L (9-20) mg/dL Creatinine 0.6 L (0.8-1.5) mg/dL Glucose 110 H (75-100) mg/dL Calcium 8.3 L (8.4-10.2) mg/dL Adrenal panel 04/26/17 Range/Units 06:45 Sodium 140 (137-145) mmol/L Potassium 3.4 L (3.6-5.0) mmol/L Chloride 100.8 (98-107) mmol/L Carbon Dioxide 26 (22-30) mmol/L BUN 6 L (9-20) mg/dL Creatinine 0.6 L (0.8-1.5) mg/dL Glucose 110 H (75-100) mg/dL Calcium 8.3 L (8.4-10.2) mg/dL Total Bilirubin 0.50 (0.1-1.2) mg/dL AST 32 (5-40) units/L ALT 31 (7-56) units/L Alkaline Phosphatase 79 (35-129) units/L Total Protein 5.8 L (6.3-8.2) g/dL Albumin 2.9 L (3.9-5) g/dL
[2017-04-26] MEDS: TOPROL XL PO SCH (11:43)
[2017-04-26] MEDS: HCTZ PO SCH (11:43)
[2017-04-26] MEDS: FEOSOL PO SCH (11:43)
[2017-04-26] MEDS: NON-FORMULARY (Esomeprazole Magnesium [Nexium] 40 MG) PO SCH (11:44)
[2017-04-26] MEDS: COREG PO SCH ×2 (11:47→23:00)
[2017-04-26] MEDS: NORVASC PO SCH (11:47)
[2017-04-26] MEDS: DITROPAN XL PO SCH (11:58)
[2017-04-26] MEDS: TYLENOL PO PRN (12:05)
--- NOTE | 2017-04-26 16:44 | Progress Note ---
Assessment and Plan Assessment and plan Sepsis: C. difficile culture is pending, stool and blood culture negative, ID following, contact isolation, on metronidazole 500 mg every 6 hours. Diverticulitis without perforation: Surgery following. Pain control with pain meds, on antibiotics, clear liquid diet. Hypertension: On antihypertensive meds. Hypokalemia-corrected. DVT prophylaxis with Heparin, GI prophylaxis with Pepcid Subjective Date of service: 04/26/17 Principal diagnosis: Sepsis, colitis, diarrhea Interval history: Still having diarrhea. No abdominal pain. No fever. Objective - Constitutional Vitals: Vital Signs - 12hr 04/26/17 04/26/17 07:38 11:43 Temperature 98.0 F Pulse Rate 61 Respiratory 19 Rate Blood Pressure 134/87 134/67 O2 Sat by Pulse 98 Oximetry General appearance: Present: no acute distress, well-nourished - EENT Eyes: PERRL, EOM intact ENT: hearing intact, clear oral mucosa Ears: bilateral: normal - Neck Neck: supple, normal ROM - Respiratory Respiratory effort: normal Respiratory: bilateral: CTA - Breasts Breasts: normal - Cardiovascular Rhythm: regular Heart Sounds: Present: S1 & S2. Absent: gallop, rub Extremities: pulses intact, No edema, normal color, Full ROM - Gastrointestinal General gastrointestinal: Present: soft, non-tender, non-distended, normal bowel sounds - Genitourinary Male genitourinary: normal - Integumentary Integumentary: clear, warm, dry - Musculoskeletal Musculoskeletal: 1, strength equal bilaterally - Neurologic Neurologic: moves all extremities - Psychiatric Psychiatric: memory intact, appropriate mood/affect, intact judgment & insight - Labs CBC & Chem 7: 04/26/17 06:45 04/26/17 06:45 Labs: Abnormal lab results 04/26/17 04/26/17 Range/Units 06:45 06:45 RBC 5.22 H (3.65-5.03) M/mm3 MCH 27 L (28-32) pg RDW 16.2 H (13.2-15.2) % Monocytes % (Manual) 10.0 H (0.0-7.3) % Potassium 3.4 L (3.6-5.0) mmol/L BUN 6 L (9-20) mg/dL Creatinine 0.6 L (0.8-1.5) mg/dL Glucose 110 H (75-100) mg/dL Calcium 8.3 L (8.4-10.2) mg/dL Magnesium 1.50 L (1.7-2.3) mg/dL Total Protein 5.8 L (6.3-8.2) g/dL Albumin 2.9 L (3.9-5) g/dL
[2017-04-26] MEDS: ULTRAM PO PRN (16:47)
[2017-04-26] MEDS: D5/0.45NS 1,000 ML IV SCH (22:52)
[2017-04-27] MEDS: D5/0.45NS 1,000 ML IV SCH (06:29)
[2017-04-27] MEDS: FLAGYL 500 MG/100 ML 500 MG/100 ML BAG IV SCH (06:30)
[2017-04-27] MEDS: HEPARIN SUB-Q SCH (06:34)
[2017-04-27] MEDS: ULTRAM PO PRN (06:35)
[2017-04-27 07:07] LABS: Hemoglobin 14.2 gm/dl (11.8-15.2); Mean Corpuscular HGB Conc 33 % (32-34); Mean Corpuscular Hemoglobin 28 pg (28-32); Mean Corpuscular Volume 84 fl (84-94); Platelet Count 151 K/mm3 (140-440); Red Blood Count 5.11 M/mm3 (3.65-5.03); Red Cell Distribution Width 16.1 % (13.2-15.2); White Blood Count 5.6 K/mm3 (4.5-11.0)
[2017-04-27 07:28] LABS: Alanine Aminotransferase 31 units/L (7-56); Albumin/Globulin Ratio 1.1 %; Alkaline Phosphatase 82 units/L (35-129); Anion Gap 14 mmol/L; BUN/Creatinine Ratio 11; Blood Urea Nitrogen 8 mg/dL (9-20); Calcium 8.3 mg/dL (8.4-10.2); Carbon Dioxide 26 mmol/L (22-30); Chloride 99.3 mmol/L (98-107); Glucose 127 mg/dL (75-100); Sodium 136 mmol/L (137-145); Total Protein 5.7 g/dL (6.3-8.2)
[2017-04-27 08:37] LABS: Basophils % (Manual) 0 % (0.0-1.8); Blastocytes % (Manual) 0 %; Diff Status Complete; Platelet Estimate Consistent w Auto; RBC Morphology Normal
[2017-04-27] MEDS: COREG PO SCH (10:00)
[2017-04-27] MEDS ORDERED: K-DUR PO ONE (10:00)
[2017-04-27] MEDS: FEOSOL PO SCH (10:00)
[2017-04-27] MEDS: TOPROL XL PO SCH (10:00)
[2017-04-27] MEDS: HCTZ PO SCH (10:00)
[2017-04-27] MEDS: DITROPAN XL PO SCH (10:01)
--- NOTE | 2017-04-27 11:20 | Progress Note ---
Assessment and Plan Assessment: 1) Sepsis:resolved. Etiology most likely colitis. 2) Colitis: CT scan of the abdomen show the sigmoid colon inflammation wall thickening. Stool C diff negative. Improved. 3) Stool Occult blood positive Plan: -monitor off antibiotics -colonoscopy as an outpatient I am signing off Thank you Dr Noriega for your consultation, will follow up with you. Georgia De Dios MD Infectious Diseases Specialist [facility] ([facility]) M [phone] O [phone] Subjective Date of service: 04/27/17 Principal diagnosis: Sepsis, colitis, diarrhea Interval history: Feels better, diarrhea resolved. No abdominal pain, wants to go home. Microbiology: Blood cultures: 04/22 ngtd Urine cultures: 04/22 10-100K colonies Stool C diff neg WBC positive Occult blood positive Current Antimicrobials: flagyl 04/23 Previous Antimicrobials: Zosyn Objective - Exam Narrative Exam: General appearance: Alert in NAD, conversant Eyes: anicteric sclerae, moist conjunctivae; no lid-lag; PERRLA HENT: Atraumatic; oropharynx clear Neck: Trachea midline; supple, no thyromegaly or lymphadenopathy Lungs: CTA CV: RRR, Abdomen: Soft,non tender Extremities: No peripheral edema or extremity lymphadenopathy Skin: Normal temperature, turgor and texture; no rash, ulcers or subcutaneous nodules Psych: Appropriate affect, alert and oriented to person, place and time. Neuro: alert and oriented x 3. Moving all extermities Lines: No CVL / PICC - Constitutional Vitals: Vital Signs Temp Pulse Resp BP Pulse Ox 98.4 F 63 20 126/86 97 04/27/17 07:42 04/27/17 07:42 04/27/17 07:42 04/27/17 07:42 04/27/17 07:42 Temperature -Last 24 Hours Temperature 98.4 F Temperature 97.8 F Temperature 98.0 F - Labs CBC & Chem 7: 04/27/17 06:29 04/27/17 06:29 Labs: Abnormal lab results 04/27/17 04/27/17 Range/Units 06:29 06:29 RBC 5.11 H (3.65-5.03) M/mm3 RDW 16.1 H (13.2-15.2) % Monocytes % (Manual) 12.0 H (0.0-7.3) % Sodium 136 L (137-145) mmol/L Potassium 3.0 L (3.6-5.0) mmol/L BUN 8 L (9-20) mg/dL Creatinine 0.7 L (0.8-1.5) mg/dL Glucose 127 H (75-100) mg/dL Calcium 8.3 L (8.4-10.2) mg/dL Total Protein 5.7 L (6.3-8.2) g/dL Albumin 3.0 L (3.9-5) g/dL
[2017-04-27 12:28] LABS: Anion Gap 19 mmol/L; BUN/Creatinine Ratio 12; Blood Urea Nitrogen 7 mg/dL (9-20); Calcium 8.3 mg/dL (8.4-10.2); Carbon Dioxide 25 mmol/L (22-30); Chloride 101.5 mmol/L (98-107); Glucose 119 mg/dL (75-100); Potassium 3.3 mmol/L (3.6-5.0); Sodium 142 mmol/L (137-145)
[2017-04-27] MEDS: NON-FORMULARY (Esomeprazole Magnesium [Nexium] 40 MG) PO SCH (12:40)
--- NOTE | 2017-04-27 12:51 | Discharge Summary ---
Providers - Providers Date of Admission: 04/22/17 11:32 Attending physician: PATRICIA BRYAN MD 04/22/17 11:25 Consult to Physician [CONS] Urgent Consulting Provider: VIRAJ LE Reason For Exam: abd sepsis, diverticulitis Place consult to:: SURGERY Notified:: Y Was contact made?: Yes If yes, spoke with:: DR LE Time called:: 11:25 04/23/17 12:14 Consult to Physician [CONS] Routine Consulting Provider: MARLY DURAN Reason For Exam: c difficle colitis Place consult to:: dr. flowers Notified:: Phone number called:: [phone] Was contact made?: Yes If yes, spoke with:: dr. flowers Time called:: 16:51 04/23/17 12:16 Physical Therapy Evaluation and Treat [CONS] Routine Comment: Reason For Exam: ROM excercises. pt bedridden Primary care physician: [employer]CIAL [employer] Hospitalization Reason for admission: sepsis, colitis Condition: Stable Pertinent studies: CT abdomen and pelvis - rectosigmoid thickening - Non obstructive nephrolithiasis Hospital course: 67 YO Male with HTN, CVA, [place], GERD, HCV, OA, HLD, BPH, PUD, CAD S/P CABG, presents to ED for evaluation. Pt states that he has experienced abdominal pain for the past two weeks with worsening symptoms over the past 5 days. Pain is 5/ 10, diffuse, intermittent, associated with subjective fever, as well as vomiting , and loose stools, no specific exacerbating or alleviating factors. Pt denies chills, BRBPR, syncope, trauma, ingestion of food or water from new or different sources, unintentional weight loss, night sweats, dysphagia, hematuria , productive cough, or recent ill contacts. Pt seen and evaluated in ED and found to have evidence of diverticulitis on CT abdomen/pelvis as well as evidence of sepsis. Pt treated [facility] sepsis protocol. Surgery service consulted in ED. patiet was admitted to the floor for the management of abdominal pain diarrhea , sepsis with fluids and IV antibiotics. surgery was consulted and recommend conservative management. ID was consulted, hence the c. diff was negative and patients was improved clinically, she recommended to D/C the antibiotics and has follow up with GI in 2 weeks for colonoscopy. Patient is wheelchair bound and has home PT. patient discharged with home health. His medications were refilled at the time of discharge. Patient was hemodynamically stable at the time of discharge. Disposition: [id number] HOME [facility] Time spent for discharge: 31 minutes - Discharge Diagnoses (1) Diverticulitis Status: Acute (2) Sepsis Status: Acute Qualifiers: Sepsis type: sepsis due to unspecified organism Qualified Code(s): A41.9 - Sepsis, unspecified organism (3) Dizziness Status: Acute Core Measure Documentation - Palliative Care Palliative Care/ Comfort Measures: Not Applicable - Core Measures Any of the following diagnoses?: none Exam - Physical Exam Narrative exam: Not in cardiopulmonary distress. The patient appeared well nourished and normally developed. Vital signs as documented. Head exam is unremarkable. No scleral icterus . Neck is without jugular venous distension, thyromegaly, or carotid bruits. Lungs are clear to auscultation. Cardiac exam reveals regular rate and Rhythm. First and second heart sounds normal. No murmurs, rubs or gallops. Abdominal exam reveals normal bowel sounds, no masses, no organomegaly and no aortic enlargement. Extremities are nonedematous and both femoral and pedal pulses are normal. OIL SPRAYER: Alert and oriented, paraparesis. - Constitutional Vitals: Temp Pulse Resp BP Pulse Ox 98.4 F 63 20 126/86 97 04/27/17 07:42 04/27/17 07:42 04/27/17 07:42 04/27/17 07:42 04/27/17 07:42 Plan Activity: advance as tolerated, fall precautions Weight Bearing Status: Non-Weight Bearing Diet: low cholesterol, low salt Additional Instructions: Follow @[facility] in 2 weeks Follow up with: KRIS FAUSTIN MD [Primary Care Provider] - 7 Days BARB HERNÁNDEZ MD [Staff Physician] - 14 Days Prescriptions: Rosuvastatin Calcium [Crestor] 20 mg PO QHS #30 tablet amLODIPine [Norvasc] 10 mg PO DAILY #30 tablet Carvedilol [Coreg] 25 mg PO BID #60 tablet Esomeprazole Magnesium [NexIUM] 40 mg PO QDAY #30 capsule. Ferrous Sulfate [Iron] 325 mg PO DAILY #30 tablet Hydrochlorothiazide [HCTZ] 25 mg PO QDAY #30 tablet Oxybutynin Chloride [Ditropan Xl] 10 mg PO QDAY #30 tab.er.24 traMADol [Ultram 50 MG tab] 50 mg PO Q4HR PRN #20 tablet PRN Reason: Pain
[2017-04-27] MEDS: NORVASC PO SCH (13:04)
--- NOTE | 2017-04-27 14:07 | Query- Nutrition ---
Dear Date:___04/27/2017 Councilman/CDS:___Hailey Phone#:___[phone] Exercise your independent professional judgment when responding to query. Questions asked do not imply a particular answer is desired or expected. We greatly appreciate your clarification on this issue. Clinical Documentation States: 67 Year old male was admitted on 04/22/2017 for numerous to count loose stools associated with abdominal pain. The Discharge summary (Dr. Leija) states "- Discharge Diagnoses (1) Diverticulitis Status: Acute." Clinical Findings Show: Albumin: 2.8 Please select the most appropriate option 3 [] Mild Malnutrition [x] Mild - Moderate Malnutrition [] Moderate - Severe Malnutrition [] Severe Malnutrition Serum Albumin 2.8 to 3.4 g/dl or Pre-albumin 5 to 17 mg/dl1,2 Inadequate nutritional intake1,2,3,4 NPO > 5 days Weight loss: 5% in 1 month or 7.5% in 3 months or 10% in 6 months1, 3,4 BMI 16 to 18.4 or Weight <90% of ideal body weight1,2,3,4 Serum Albumin < 2.8 g/ dl1,2 Lymphocytes < 1500/ L2 Inadequate nutritional intake3, high stress e.g. major trauma, sepsis,pancreatitis, castillo etc. Decubitus ulcers1,2, , skin breakdown2, easy hair pluckability2 Weight <80% standard for height2 Triceps skin fold <3 mm2 Mid-arm muscle circumference <15 cm2 Creatinine-height index <60% standard2 [ ] Cachexia [ ] Emaciated w/Malnutrition [ ] Other: [ x] Unable to determine [ ] Comment/Explanation: Present on Admission: [ x] Yes (Y) [ ] Clinically undeterminable (W) [ ] No (N) Please also document response in your Progress Notes and/or Discharge Summary and indicate if the condition was present on admission. MTDD
[2017-04-27 16:32] VITALS: BP 140/97
[2017-04-27] MEDS ORDERED: PNEUMOVAX 23 IM ONE (17:00)
[2017-04-27] MEDS ORDERED: Fluarix Quad 2017-2018(36 MOS+ IM ONE (17:00)
--- NOTE | 2017-05-20 11:03 | Query- Nutrition ---
Dear Date:__04/28/17 Calender Feeder/CDS: Hailey Phone#:[phone] Exercise your independent professional judgment when responding to query. Questions asked do not imply a particular answer is desired or expected. We greatly appreciate your clarification on this issue. Clinical Documentation States: 67 year old male was admitted on 04/22/17 for numerous to count loose stools associated with abdominal pain. The Discharge summary(Dr. Leija) states "Discharge diagnoses - Diverticulitis Clinical Findings Show: Albumin: 2.8 Please select the most appropriate option 3 [] Mild Malnutrition [x] Mild - Moderate Malnutrition [] Moderate - Severe Malnutrition [] Severe Malnutrition Serum Albumin 2.8 to 3.4 g/dl or Pre-albumin 5 to 17 mg/dl1,2 Inadequate nutritional intake1,2,3,4 NPO > 5 days Weight loss: 5% in 1 month or 7.5% in 3 months or 10% in 6 months1, 3,4 BMI 16 to 18.4 or Weight <90% of ideal body weight1,2,3,4 Serum Albumin < 2.8 g/ dl1,2 Lymphocytes < 1500/ L2 Inadequate nutritional intake3, high stress e.g. major trauma, sepsis,pancreatitis, castillo etc. Decubitus ulcers1,2, , skin breakdown2, easy hair pluckability2 Weight <80% standard for height2 Triceps skin fold <3 mm2 Mid-arm muscle circumference <15 cm2 Creatinine-height index <60% standard2 [ ] Cachexia [ ] Emaciated w/Malnutrition [ ] Other: [ ] Unable to determine [ ] Comment/Explanation: Present on Admission: [x ] Yes (Y) [ ] Clinically undeterminable (W) [ ] No (N) Please also document response in your Progress Notes and/or Discharge Summary and indicate if the condition was present on admission. MTDD
== END 2017-04-27 22:05 | disposition home health service (06) | DRG 872 ==
LOC: ED 02:42 → 3A 11:32
PROVIDERS: ADMIT Internal Medicine; ATTEND Internal Medicine
PROC: 3E0234Z Introduction of Serum, Toxoid and Vaccine into Muscle, Percutaneous Approach (ICD-10-PCS; principal; 2017-04-27)
DX: A41.9 Sepsis, unspecified organism (principal); K57.92 Diverticulitis of intestine, part unspecified, without perforation or abscess without bleeding; E44.0 Moderate protein-calorie malnutrition; I10 Essential (primary) hypertension; F12.90 Cannabis use, unspecified, uncomplicated; K21.9 Gastro-esophageal reflux disease without esophagitis; M19.90 Unspecified osteoarthritis, unspecified site; F32.9 Major depressive disorder, single episode, unspecified; N40.0 Benign prostatic hyperplasia without lower urinary tract symptoms; I25.10 Atherosclerotic heart disease of native coronary artery without angina pectoris; E78.5 Hyperlipidemia, unspecified; Z96.659 Presence of unspecified artificial knee joint; Z96.649 Presence of unspecified artificial hip joint; E87.6 Hypokalemia; K52.9 Noninfective gastroenteritis and colitis, unspecified; Z23 Encounter for immunization; Z86.73 Personal history of transient ischemic attack (TIA), and cerebral infarction without residual deficits; I25.2 Old myocardial infarction; Z95.1 Presence of aortocoronary bypass graft; Z87.11 Personal history of peptic ulcer disease; Z83.3 Family history of diabetes mellitus; Z82.49 Family history of ischemic heart disease and other diseases of the circulatory system; Z68.24 Body mass index [BMI] 24.0-24.9, adult
CPT/HCPCS: 36415; 71010; 74177; 80048; 80053; 81001; 82140; 82270; 82550; 83690; 83735; 85007; 85025; 85027; 86850; 86900; 86901; 87040; 87045; 87086; 87493; 90686; 90732; 96374; 99285; A9270-GY; G8978-GP; G8979-GP; J1644; J2405; J2543; J3480; J7030; J7040; Q9967

== ENCOUNTER 2017-07-13 10:16 | Outpatient (CLI) | payer BC ==
[2017-07-13] MEDS ORDERED: XYLOCAINE TOPICAL 4% TP ONE ×2 (11:14→11:38)
== END 2017-07-13 10:17 | disposition home or self-care (01) ==
LOC: WOUND 10:16
PROVIDERS: ATTEND Surgery
DX: L89.324 Pressure ulcer of left buttock, stage 4 (principal); I10 Essential (primary) hypertension; J44.9 Chronic obstructive pulmonary disease, unspecified; M86.8X8 Other osteomyelitis, other site; I25.10 Atherosclerotic heart disease of native coronary artery without angina pectoris; Z96.652 Presence of left artificial knee joint; Z96.642 Presence of left artificial hip joint; Z86.73 Personal history of transient ischemic attack (TIA), and cerebral infarction without residual deficits
CPT/HCPCS: 11042; G0463

== ENCOUNTER 2017-07-20 09:50 | Outpatient (CLI) | payer BC, MEDICARE ==
[2017-07-20] MEDS ORDERED: XYLOCAINE TOPICAL 4% TP ONE (10:34)
[2017-07-20] MEDS ORDERED: SILVER NITRATE TP ONE ×2 (10:54→10:55)
== END 2017-07-20 09:51 | disposition home or self-care (01) ==
LOC: WOUND 09:50
PROVIDERS: ATTEND Surgery
DX: L89.152 Pressure ulcer of sacral region, stage 2 (principal); J44.9 Chronic obstructive pulmonary disease, unspecified; M86.8X8 Other osteomyelitis, other site; K75.89 Other specified inflammatory liver diseases; I25.10 Atherosclerotic heart disease of native coronary artery without angina pectoris; I10 Essential (primary) hypertension; Z96.652 Presence of left artificial knee joint; Z86.73 Personal history of transient ischemic attack (TIA), and cerebral infarction without residual deficits; Z96.642 Presence of left artificial hip joint

== ENCOUNTER 2017-07-27 09:40 | Outpatient (CLI) | payer MEDICARE ==
[2017-07-27] MEDS ORDERED: XYLOCAINE TOPICAL 4% TP ONE (10:24)
[2017-07-27] MEDS ORDERED: SILVER NITRATE TP ONE ×2 (10:53→13:20)
== END 2017-07-27 09:41 | disposition home or self-care (01) ==
LOC: WOUND 09:40
PROVIDERS: ATTEND Surgery
DX: L89.324 Pressure ulcer of left buttock, stage 4 (principal); J44.9 Chronic obstructive pulmonary disease, unspecified; B19.20 Unspecified viral hepatitis C without hepatic coma; I25.10 Atherosclerotic heart disease of native coronary artery without angina pectoris; M86.8X8 Other osteomyelitis, other site; I10 Essential (primary) hypertension; Z96.652 Presence of left artificial knee joint; Z86.73 Personal history of transient ischemic attack (TIA), and cerebral infarction without residual deficits
CPT/HCPCS: 97605

== ENCOUNTER 2017-08-03 09:40 | Outpatient (CLI) | payer MEDICARE ==
[2017-08-03] MEDS ORDERED: XYLOCAINE TOPICAL 4% TP ONE ×2 (10:02→10:03)
== END 2017-08-03 09:41 | disposition home or self-care (01) ==
LOC: WOUND 09:40
PROVIDERS: ATTEND Surgery
DX: L89.324 Pressure ulcer of left buttock, stage 4 (principal); M86.8X8 Other osteomyelitis, other site; B19.20 Unspecified viral hepatitis C without hepatic coma; M19.90 Unspecified osteoarthritis, unspecified site; I25.10 Atherosclerotic heart disease of native coronary artery without angina pectoris; J44.9 Chronic obstructive pulmonary disease, unspecified; I10 Essential (primary) hypertension; Z86.73 Personal history of transient ischemic attack (TIA), and cerebral infarction without residual deficits; Z96.652 Presence of left artificial knee joint; Z96.642 Presence of left artificial hip joint
CPT/HCPCS: 97605

== ENCOUNTER 2017-08-17 09:37 | Outpatient (CLI) | payer MEDICARE ==
[2017-08-17] MEDS ORDERED: XYLOCAINE TOPICAL 4% TP ONE (10:23)
== END 2017-08-17 09:38 | disposition home or self-care (01) ==
LOC: WOUND 09:37
PROVIDERS: ATTEND Surgery
DX: L89.324 Pressure ulcer of left buttock, stage 4 (principal); I25.10 Atherosclerotic heart disease of native coronary artery without angina pectoris; M86.8X8 Other osteomyelitis, other site; B19.20 Unspecified viral hepatitis C without hepatic coma; M19.90 Unspecified osteoarthritis, unspecified site; J44.9 Chronic obstructive pulmonary disease, unspecified; I10 Essential (primary) hypertension; Z96.652 Presence of left artificial knee joint; Z96.642 Presence of left artificial hip joint; Z86.73 Personal history of transient ischemic attack (TIA), and cerebral infarction without residual deficits
CPT/HCPCS: 97597; 97605

== ENCOUNTER 2017-08-24 09:33 | Outpatient (CLI) | payer MEDICARE ==
[2017-08-24] MEDS ORDERED: XYLOCAINE TOPICAL 4% TP ONE ×2 (09:57→09:58)
== END 2017-08-24 09:34 | disposition home or self-care (01) ==
LOC: WOUND 09:33
PROVIDERS: ATTEND Surgery
DX: L89.324 Pressure ulcer of left buttock, stage 4 (principal); B19.20 Unspecified viral hepatitis C without hepatic coma; M19.90 Unspecified osteoarthritis, unspecified site; I25.10 Atherosclerotic heart disease of native coronary artery without angina pectoris; M86.8X8 Other osteomyelitis, other site; J44.9 Chronic obstructive pulmonary disease, unspecified; I10 Essential (primary) hypertension; Z96.652 Presence of left artificial knee joint; Z86.73 Personal history of transient ischemic attack (TIA), and cerebral infarction without residual deficits; Z96.642 Presence of left artificial hip joint
CPT/HCPCS: 97605

== ENCOUNTER 2017-08-31 09:39 | Outpatient (CLI) | payer MEDICARE ==
[2017-08-31] MEDS ORDERED: XYLOCAINE TOPICAL 4% TP ONE (10:07)
== END 2017-08-31 09:40 | disposition home or self-care (01) ==
LOC: WOUND 09:39
PROVIDERS: ATTEND Surgery
DX: L89.324 Pressure ulcer of left buttock, stage 4 (principal); J44.9 Chronic obstructive pulmonary disease, unspecified; M86.8X8 Other osteomyelitis, other site; B19.20 Unspecified viral hepatitis C without hepatic coma; M19.90 Unspecified osteoarthritis, unspecified site; I25.10 Atherosclerotic heart disease of native coronary artery without angina pectoris; I10 Essential (primary) hypertension; Z96.652 Presence of left artificial knee joint; Z96.642 Presence of left artificial hip joint; Z86.73 Personal history of transient ischemic attack (TIA), and cerebral infarction without residual deficits
CPT/HCPCS: 97605

== ENCOUNTER 2017-09-07 09:23 | Outpatient (CLI) | payer MEDICARE ==
[2017-09-07] MEDS ORDERED: XYLOCAINE TOPICAL 4% TP ONE (10:03)
== END 2017-09-07 09:24 | disposition home or self-care (01) ==
LOC: WOUND 09:23
PROVIDERS: ATTEND Surgery
DX: L89.324 Pressure ulcer of left buttock, stage 4 (principal); M86.8X8 Other osteomyelitis, other site; B19.20 Unspecified viral hepatitis C without hepatic coma; I10 Essential (primary) hypertension; J44.9 Chronic obstructive pulmonary disease, unspecified; M19.90 Unspecified osteoarthritis, unspecified site; I25.10 Atherosclerotic heart disease of native coronary artery without angina pectoris; Z96.652 Presence of left artificial knee joint; Z96.642 Presence of left artificial hip joint; Z86.73 Personal history of transient ischemic attack (TIA), and cerebral infarction without residual deficits
CPT/HCPCS: 97605

== ENCOUNTER 2017-09-14 09:47 | Outpatient (CLI) | payer MEDICARE ==
[2017-09-14] MEDS ORDERED: XYLOCAINE 2%/ EPI 1:200,000 INFILTRATI ONE ×2 (09:57→10:10)
[2017-09-14] MEDS ORDERED: XYLOCAINE TOPICAL 4% TP ONE (10:09)
== END 2017-09-14 09:48 | disposition home or self-care (01) ==
LOC: WOUND 09:47
PROVIDERS: ATTEND Surgery
DX: L89.324 Pressure ulcer of left buttock, stage 4 (principal); L89.152 Pressure ulcer of sacral region, stage 2; S81.001D Unspecified open wound, right knee, subsequent encounter; J44.9 Chronic obstructive pulmonary disease, unspecified; M86.8X8 Other osteomyelitis, other site; B19.20 Unspecified viral hepatitis C without hepatic coma; M19.90 Unspecified osteoarthritis, unspecified site; I25.10 Atherosclerotic heart disease of native coronary artery without angina pectoris; I10 Essential (primary) hypertension; Z96.652 Presence of left artificial knee joint; Z96.642 Presence of left artificial hip joint; Z86.73 Personal history of transient ischemic attack (TIA), and cerebral infarction without residual deficits; X58.XXXD Exposure to other specified factors, subsequent encounter
CPT/HCPCS: 11042; 97605; G0463

== ENCOUNTER 2017-09-21 09:34 | Outpatient (CLI) | payer MEDICARE ==
[2017-09-21] MEDS ORDERED: XYLOCAINE TOPICAL 4% TP ONE (10:00)
== END 2017-09-21 09:35 | disposition home or self-care (01) ==
LOC: WOUND 09:34
PROVIDERS: ATTEND Surgery
DX: L89.152 Pressure ulcer of sacral region, stage 2 (principal); S81.001D Unspecified open wound, right knee, subsequent encounter; J44.9 Chronic obstructive pulmonary disease, unspecified; M86.8X8 Other osteomyelitis, other site; B19.20 Unspecified viral hepatitis C without hepatic coma; I25.10 Atherosclerotic heart disease of native coronary artery without angina pectoris; M19.90 Unspecified osteoarthritis, unspecified site; I10 Essential (primary) hypertension; Z86.73 Personal history of transient ischemic attack (TIA), and cerebral infarction without residual deficits; Z96.652 Presence of left artificial knee joint; Z96.642 Presence of left artificial hip joint; X58.XXXD Exposure to other specified factors, subsequent encounter
CPT/HCPCS: 97605

== ENCOUNTER 2017-09-28 09:35 | Outpatient (CLI) | payer MEDICARE ==
[2017-09-28] MEDS ORDERED: XYLOCAINE TOPICAL 4% TP ONE ×2 (10:05)
== END 2017-09-28 09:36 | disposition home or self-care (01) ==
LOC: WOUND 09:35
PROVIDERS: ATTEND Surgery
DX: L89.324 Pressure ulcer of left buttock, stage 4 (principal); S81.001D Unspecified open wound, right knee, subsequent encounter; J44.9 Chronic obstructive pulmonary disease, unspecified; M86.8X8 Other osteomyelitis, other site; B19.20 Unspecified viral hepatitis C without hepatic coma; I25.10 Atherosclerotic heart disease of native coronary artery without angina pectoris; M19.90 Unspecified osteoarthritis, unspecified site; I10 Essential (primary) hypertension; Z86.73 Personal history of transient ischemic attack (TIA), and cerebral infarction without residual deficits; Z96.652 Presence of left artificial knee joint; Z96.642 Presence of left artificial hip joint; X58.XXXD Exposure to other specified factors, subsequent encounter
CPT/HCPCS: 97605

== ENCOUNTER 2017-10-05 09:43 | Outpatient (CLI) | payer MEDICARE ==
[2017-10-05] MEDS ORDERED: XYLOCAINE TOPICAL 4% TP ONE ×2 (10:08→10:09)
== END 2017-10-05 09:44 | disposition home or self-care (01) ==
LOC: WOUND 09:43
PROVIDERS: ATTEND Surgery
DX: L89.324 Pressure ulcer of left buttock, stage 4 (principal); S81.001D Unspecified open wound, right knee, subsequent encounter; J44.9 Chronic obstructive pulmonary disease, unspecified; M86.8X8 Other osteomyelitis, other site; B19.20 Unspecified viral hepatitis C without hepatic coma; I25.10 Atherosclerotic heart disease of native coronary artery without angina pectoris; M19.90 Unspecified osteoarthritis, unspecified site; I10 Essential (primary) hypertension; Z86.73 Personal history of transient ischemic attack (TIA), and cerebral infarction without residual deficits; Z96.652 Presence of left artificial knee joint; Z96.642 Presence of left artificial hip joint; X58.XXXD Exposure to other specified factors, subsequent encounter
CPT/HCPCS: 97605

== ENCOUNTER 2017-10-26 09:01 | Outpatient (CLI) | payer MEDICARE ==
[2017-10-26] MEDS ORDERED: XYLOCAINE TOPICAL 4% TP ONE ×2 (09:16→14:03)
== END 2017-10-26 09:02 | disposition home or self-care (01) ==
LOC: WOUND 09:01
PROVIDERS: ATTEND Surgery
DX: L89.324 Pressure ulcer of left buttock, stage 4 (principal); I10 Essential (primary) hypertension; J44.9 Chronic obstructive pulmonary disease, unspecified; M86.8X8 Other osteomyelitis, other site; B19.20 Unspecified viral hepatitis C without hepatic coma; M19.90 Unspecified osteoarthritis, unspecified site; I25.10 Atherosclerotic heart disease of native coronary artery without angina pectoris; Z96.652 Presence of left artificial knee joint; Z86.73 Personal history of transient ischemic attack (TIA), and cerebral infarction without residual deficits; Z96.642 Presence of left artificial hip joint
CPT/HCPCS: 97605

== ENCOUNTER 2017-11-02 10:51 | Outpatient (CLI) | payer MEDICARE ==
[2017-11-02] MEDS ORDERED: XYLOCAINE TOPICAL 4% TP ONE (10:56)
== END 2017-11-02 10:52 | disposition home or self-care (01) ==
LOC: WOUND 10:51
PROVIDERS: ATTEND Surgery
DX: L89.324 Pressure ulcer of left buttock, stage 4 (principal); J44.9 Chronic obstructive pulmonary disease, unspecified; E11.69 Type 2 diabetes mellitus with other specified complication; M86.9 Osteomyelitis, unspecified; B19.20 Unspecified viral hepatitis C without hepatic coma; I25.10 Atherosclerotic heart disease of native coronary artery without angina pectoris; M19.90 Unspecified osteoarthritis, unspecified site; I10 Essential (primary) hypertension; Z96.652 Presence of left artificial knee joint; Z86.73 Personal history of transient ischemic attack (TIA), and cerebral infarction without residual deficits; Z96.642 Presence of left artificial hip joint

== ENCOUNTER 2017-11-09 09:34 | Outpatient (CLI) | payer MEDICARE ==
[2017-11-09] MEDS ORDERED: XYLOCAINE TOPICAL 4% TP ONE (09:41)
== END 2017-11-09 09:35 | disposition home or self-care (01) ==
LOC: WOUND 09:34
PROVIDERS: ATTEND Surgery
DX: L89.324 Pressure ulcer of left buttock, stage 4 (principal); I10 Essential (primary) hypertension; J44.9 Chronic obstructive pulmonary disease, unspecified; M86.8X8 Other osteomyelitis, other site; B19.20 Unspecified viral hepatitis C without hepatic coma; I25.10 Atherosclerotic heart disease of native coronary artery without angina pectoris; M19.90 Unspecified osteoarthritis, unspecified site; Z96.652 Presence of left artificial knee joint; Z86.73 Personal history of transient ischemic attack (TIA), and cerebral infarction without residual deficits; Z96.642 Presence of left artificial hip joint

== ENCOUNTER 2017-11-30 09:31 | Outpatient (CLI) | payer MEDICARE ==
[2017-11-30] MEDS ORDERED: XYLOCAINE TOPICAL 4% TP ONE (09:38)
== END 2017-11-30 09:32 | disposition home or self-care (01) ==
LOC: WOUND 09:31
PROVIDERS: ATTEND Surgery
DX: L89.324 Pressure ulcer of left buttock, stage 4 (principal); I10 Essential (primary) hypertension; J44.9 Chronic obstructive pulmonary disease, unspecified; M86.8X8 Other osteomyelitis, other site; B19.20 Unspecified viral hepatitis C without hepatic coma; I25.10 Atherosclerotic heart disease of native coronary artery without angina pectoris; M19.90 Unspecified osteoarthritis, unspecified site; Z96.652 Presence of left artificial knee joint; Z86.73 Personal history of transient ischemic attack (TIA), and cerebral infarction without residual deficits; Z96.642 Presence of left artificial hip joint
CPT/HCPCS: 99214; G0463

== ENCOUNTER 2017-12-14 09:35 | Outpatient (CLI) | payer MEDICARE | END 2017-12-14 09:36 | disposition home or self-care (01) | LOC: WOUND 09:35 | PROVIDERS: ATTEND Surgery | DX: L89.324 Pressure ulcer of left buttock, stage 4 (principal); I10 Essential (primary) hypertension; J44.9 Chronic obstructive pulmonary disease, unspecified; M86.8X8 Other osteomyelitis, other site; B19.20 Unspecified viral hepatitis C without hepatic coma; I25.10 Atherosclerotic heart disease of native coronary artery without angina pectoris; M19.90 Unspecified osteoarthritis, unspecified site; Z96.652 Presence of left artificial knee joint; Z86.73 Personal history of transient ischemic attack (TIA), and cerebral infarction without residual deficits; Z96.642 Presence of left artificial hip joint | CPT/HCPCS: 99214; G0463 ==

== ENCOUNTER 2018-09-15 23:27 | Emergency (ER) | payer MEDICARE ==
[2018-09-15] MEDS ORDERED: VALIUM PO ONE (23:57)
--- NOTE | 2018-09-15 23:57 | Emergency Department Report ---
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 Patient also had history of chronic dizziness he is on meclizine. Patient presented to the ER via EMS for evaluation of dizziness since last night. Patient stated that his meclizine is not helping. Patient denied any chest pain, shortness of breath, abdominal pain. She also denied any fever or chills. MD Complaint: dizziness, lightheadedness -: Last night Description: sense of movement, "room spinning" Severity: moderate - Related Data Home Medications Medication Instructions Recorded Confirmed Last Taken Meclizine 12.5 mg PO 09/15/18 09/15/18 amLODIPine [Norvasc] 5 mg PO DAILY 09/15/18 Unknown Previous Rx's Medication Instructions Recorded Last Taken Type Carvedilol [Coreg] 25 mg PO BID #60 tablet 04/27/17 09/15/18 Rx Esomeprazole Magnesium [NexIUM] 40 mg PO QDAY #30 capsule.dr 04/27/17 09/15/18 Rx Ferrous Sulfate [Iron 325 MG] 325 mg PO DAILY #30 tablet 04/27/17 Unknown Rx Oxybutynin Chloride [Ditropan Xl] 10 mg PO QDAY #30 tab.er.24 04/27/17 09/15/18 Rx Rosuvastatin Calcium [Crestor] 20 mg PO QHS #30 tablet 04/27/17 Unknown Rx hydroCHLOROthiazide [HCTZ] 25 mg PO QDAY #30 tablet 04/27/17 09/15/18 Rx traMADol [Ultram 50 MG tab] 50 mg PO Q4HR PRN #20 tablet 04/27/17 Unknown Rx Allergies Allergy/AdvReac Type Severity Reaction Status Date / Time No Known Allergies Allergy Verified 07/30/15 17:02 ED Review of Systems ROS: Stated complaint: DIZZY Other details as noted in HPI Comment: All other systems reviewed and negative Constitutional: denies: chills, fever Respiratory: denies: cough, orthopnea, shortness of breath, SOB with exertion, SOB at rest, wheezing Cardiovascular: denies: chest pain, palpitations Gastrointestinal: denies: abdominal pain, nausea, vomiting, diarrhea, constipation, hematemesis, hematochezia Neurological: denies: headache, weakness, numbness, paresthesias, confusion Psychiatric: denies: depression ED Past Medical Hx - Past Medical History Previous Medical History?: Yes Hx Hypertension: Yes Hx CVA: Yes (2015) Hx Heart Attack/AMI: Yes Hx Deep Vein Thrombosis: No Hx GERD: Yes Hx Liver Disease: Yes (hep c) Hx Renal Disease: No Hx Arthritis: Yes Hx Psychiatric Treatment: Yes (DEPRESSION) Hx HIV: No Additional medical history: HIGH CHOLESTEROL. BPH. CAD. ULCER. VERTIGO - Surgical History Hx Open Heart Surgery: Yes () Hx Pacemaker: No Hx Internal Defibrillator: No Additional Surgical History: Left hip removal. LEFT KNEE SURGERY. RIGHT HIP SURGERY - Social History Smoking Status: Never Smoker - Medications Home Medications: Home Medications Medication Instructions Recorded Confirmed Last Taken Type Carvedilol [Coreg] 25 mg PO BID #60 tablet 04/27/17 09/15/18 Rx Esomeprazole Magnesium [NexIUM] 40 mg PO QDAY #30 capsule.dr 04/27/17 09/15/18 Rx Ferrous Sulfate [Iron 325 MG] 325 mg PO DAILY #30 tablet 04/27/17 Unknown Rx Oxybutynin Chloride [Ditropan Xl] 10 mg PO QDAY #30 tab.er.24 04/27/17 09/15/18 Rx Rosuvastatin Calcium [Crestor] 20 mg PO QHS #30 tablet 04/27/17 Unknown Rx hydroCHLOROthiazide [HCTZ] 25 mg PO QDAY #30 tablet 04/27/17 09/15/18 Rx traMADol [Ultram 50 MG tab] 50 mg PO Q4HR PRN #20 tablet 04/27/17 Unknown Rx Meclizine 12.5 mg PO 09/15/18 09/15/18 History amLODIPine [Norvasc] 5 mg PO DAILY 09/15/18 Unknown History ED Physical Exam - General Limitations: Physical Limitation General appearance: alert, in no apparent distress - Head Head exam: Present: atraumatic, normocephalic, normal inspection - ENT ENT exam: Present: normal exam - Neck Neck exam: Present: normal inspection, full ROM. Absent: tenderness, meningismus, lymphadenopathy, thyromegaly - Respiratory Respiratory exam: Present: normal lung sounds bilaterally - Cardiovascular Cardiovascular Exam: Present: regular rate, normal rhythm, normal heart sounds - GI/Abdominal GI/Abdominal exam: Present: soft. Absent: distended, tenderness, guarding, rebound, rigid, organomegaly, mass, bruit, pulsatile mass - Neurological Exam Neurological exam: Present: alert, oriented X3, CN II-XII intact - Skin Skin exam: Present: warm ED Course Vital Signs 09/15/18 23:49 Temperature 97.9 F Pulse Rate 74 Respiratory 18 Rate Blood Pressure 108/74 O2 Sat by Pulse 99 Oximetry ED Medical Decision Making - Lab Data Result diagrams: 09/16/18 00:02 09/16/18 00:02 - Radiology Data Radiology results: report reviewed CT brain with no acute finding. 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 Patient also had history of chronic dizziness he is on meclizine. Patient presented to the ER via EMS for evaluation of dizziness since last night. Patient stated that his meclizine is not helping. Patient denied any chest pain, shortness of breath, abdominal pain. She also denied any fever or chills. Patient received diazepam 5 mg since meclizine is not helping anymore. Patient stated that he is feeling much better his dizziness is completely resolved. Patient is asked for constipation medicine I will provide Colace. Advised patient to follow up with his primary care physician in the next 2-3 days and then to the ER if symptoms have not improved. Critical care attestation.: If time is entered above; I have spent that time in minutes in the direct care of this critically ill patient, excluding procedure time. ED Disposition Clinical Impression: Dizziness, Constipation Disposition: -01 TO HOME OR SELFCARE Is pt being admited?: No Condition: Stable Instructions: Dizziness (ED), Constipation (ED), High Fiber Diet (ED) Referrals: YOLY ROBERT MD [Primary Care Provider] - 3-5 Days
[2018-09-16 00:15] LABS: Basophils # (Auto) 0.1 K/mm3 (0.0-0.1); Basophils % (Auto) 0.8 % (0.0-1.8); Eosinophils # (Auto) 0.2 K/mm3 (0.0-0.4); Eosinophils % (Auto) 3.2 % (0.0-4.3); Hematocrit 46.5 % (35.5-45.6); Hemoglobin 15.6 gm/dl (11.8-15.2); Lymphocytes # (Auto) 1.6 K/mm3 (1.2-5.4); Lymphocytes % (Auto) 25.5 % (13.4-35.0); Mean Corpuscular HGB Conc 34 % (32-34); Mean Corpuscular Volume 86 fl (84-94); Monocytes # (Auto) 0.5 K/mm3 (0.0-0.8); Monocytes % (Auto) 7.8 % (0.0-7.3); Platelet Count 210 K/mm3 (140-440); Red Blood Count 5.37 M/mm3 (3.65-5.03); Red Cell Distribution Width 14.6 % (13.2-15.2)
[2018-09-16 00:37] LABS: BUN/Creatinine Ratio 12; Blood Urea Nitrogen 13 mg/dL (9-20); Calcium 9.4 mg/dL (8.4-10.2); Hemolysis Index 7
--- NOTE | 2018-09-16 02:14 | Cat Scan Report ---
PROCEDURE: CT HEAD/BRAIN WO CON TECHNIQUE: Computerized tomography of the head was performed without contrast material. CT DOSE LENGTH PRODUCT: 968.9 mGycm HISTORY: DIZZINESS AND HEADACHE COMPARISONS: None . FINDINGS: Skull and scalp: Normal . Paranasal sinuses: Normal . Ventricles and subarachnoid spaces: There is advanced central and cortical atrophy. There is no hydr ocephalus or asymmetry. . Cerebrum: No evidence of hemorrhage, acute infarction or mass . There is chronic periventricular jeff p white matter ischemic gliosis. Cerebellum and brainstem: No evidence of hemorrhage, acute infarction or mass . Vasculature: Normal . IMPRESSION: There are chronic involutional and ischemic changes. There is no hemorrhage, edema, mass , mass effect or midline shift. . This document is electronically signed by Ajith Bertrand MD., Sep 16 2018 02:12:18 AM ET
[2018-09-16 06:45] VITALS: BP 132/87
== END 2018-09-16 06:45 | disposition home or self-care (01) ==
LOC: ED 23:27
DX: R42 Dizziness and giddiness (principal); K59.00 Constipation, unspecified; I10 Essential (primary) hypertension; I25.2 Old myocardial infarction; K21.9 Gastro-esophageal reflux disease without esophagitis; M19.90 Unspecified osteoarthritis, unspecified site
CPT/HCPCS: 36415; 70450; 80048; 85025; 93005; 93010

== ENCOUNTER 2019-06-20 16:08 | Emergency (ER) | payer MEDICARE ==
[2019-06-20 18:36] LABS: Basophils # (Auto) 0.1 K/mm3 (0.0-0.1); Basophils % (Auto) 0.9 % (0.0-1.8); Eosinophils # (Auto) 0.3 K/mm3 (0.0-0.4); Eosinophils % (Auto) 4.5 % (0.0-4.3); Hematocrit 48.5 % (35.5-45.6); Hemoglobin 16.5 gm/dl (11.8-15.2); Lymphocytes # (Auto) 1.6 K/mm3 (1.2-5.4); Lymphocytes % (Auto) 22.3 % (13.4-35.0); Mean Corpuscular HGB Conc 34 % (32-34); Mean Corpuscular Volume 84 fl (84-94); Monocytes # (Auto) 0.6 K/mm3 (0.0-0.8); Monocytes % (Auto) 7.9 % (0.0-7.3); Platelet Count 208 K/mm3 (140-440); Red Blood Count 5.77 M/mm3 (3.65-5.03); Red Cell Distribution Width 15.5 % (13.2-15.2)
[2019-06-20 18:56] LABS: BUN/Creatinine Ratio 16; Blood Urea Nitrogen 13 mg/dL (9-20); Calcium 9.8 mg/dL (8.4-10.2); Hemolysis Index 11
--- NOTE | 2019-06-20 19:15 | Emergency Department Report ---
ED General Adult HPI - General Chief complaint: Wound/Laceration Stated complaint: ULCER INFECTION Time Seen by Provider: 06/20/19 17:29 Source: patient, family, EMS Mode of arrival: Stretcher Limitations: No Limitations - History of Present Illness Initial comments: 69-year-old male presents to ED with the wound to left hip. 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 Patient had hardware removed, and is nonambulatory. Daughter states patient has been having bloody drainage from the area of the scar on the left hip 1 month. Daughter states is getting any worse over the last 2 weeks. She has been changing the dressings regularly. Patient does not have home health care. Denies purulent drainage. Denies fever, nausea or vomiting. Patient reports a mild pain to the area -: month(s) (1) Location: left, lower extremity Consistency: intermittent Improves with: none Worsens with: none Associated Symptoms: denies: fever/chills, nausea/vomiting Treatments Prior to Arrival: other (dressing changes) - Related Data Home Medications Medication Instructions Recorded Confirmed Last Taken Meclizine 12.5 mg PO 09/15/18 09/15/18 amLODIPine 5 mg PO DAILY 09/15/18 Unknown Previous Rx's Medication Instructions Recorded Last Taken Type Esomeprazole Magnesium [NexIUM] 40 mg PO QDAY #30 capsule.dr 04/27/17 09/15/18 Rx Ferrous Sulfate [Iron 325 MG] 325 mg PO DAILY #30 tablet 04/27/17 Unknown Rx Oxybutynin Chloride [Ditropan Xl] 10 mg PO QDAY #30 tab.er.24 04/27/17 09/15/18 Rx Rosuvastatin Calcium [Crestor] 20 mg PO QHS #30 tablet 04/27/17 Unknown Rx carvediloL [Coreg] 25 mg PO BID #60 tablet 04/27/17 09/15/18 Rx hydroCHLOROthiazide [HCTZ] 25 mg PO QDAY #30 tablet 04/27/17 09/15/18 Rx traMADoL [Ultram 50 MG tab] 50 mg PO Q4HR PRN #20 tablet 04/27/17 Unknown Rx Docusate Sodium [Colace] 100 mg PO BID PRN #60 capsule 09/16/18 Unknown Rx diazePAM TAB [Valium] 5 mg PO QHS PRN #5 tab 09/16/18 Unknown Rx Sulfamethoxazole/Trimethoprim 1 each PO BID 10 Days #20 tablet 06/20/19 Unknown Rx [Bactrim DS TAB] Allergies Allergy/AdvReac Type Severity Reaction Status Date / Time No Known Allergies Allergy Verified 07/30/15 17:02 ED Review of Systems ROS: Stated complaint: ULCER INFECTION Other details as noted in HPI Comment: All other systems reviewed and negative Constitutional: denies: chills, fever Skin: as per HPI ED Past Medical Hx - Past Medical History Previous Medical History?: Yes Hx Hypertension: Yes Hx CVA: Yes (2015) Hx Heart Attack/AMI: Yes Hx Deep Vein Thrombosis: No Hx GERD: Yes Hx Liver Disease: Yes (hep c) Hx Renal Disease: No Hx Arthritis: Yes Hx Psychiatric Treatment: Yes (DEPRESSION) Hx HIV: No Additional medical history: HIGH CHOLESTEROL. BPH. CAD. ULCER. VERTIGO - Surgical History Hx Open Heart Surgery: Yes () Hx Pacemaker: No Hx Internal Defibrillator: No Additional Surgical History: Left hip removal. LEFT KNEE SURGERY. RIGHT HIP SURGERY - Social History Smoking Status: Never Smoker Substance Use Type: Alcohol, Marijuana - Medications Home Medications: Home Medications Medication Instructions Recorded Confirmed Last Taken Type Esomeprazole Magnesium [NexIUM] 40 mg PO QDAY #30 capsule.dr 04/27/17 09/15/18 Rx Ferrous Sulfate [Iron 325 MG] 325 mg PO DAILY #30 tablet 04/27/17 Unknown Rx Oxybutynin Chloride [Ditropan Xl] 10 mg PO QDAY #30 tab.er.24 04/27/17 09/15/18 Rx Rosuvastatin Calcium [Crestor] 20 mg PO QHS #30 tablet 04/27/17 Unknown Rx carvediloL [Coreg] 25 mg PO BID #60 tablet 04/27/17 09/15/18 Rx hydroCHLOROthiazide [HCTZ] 25 mg PO QDAY #30 tablet 04/27/17 09/15/18 Rx traMADoL [Ultram 50 MG tab] 50 mg PO Q4HR PRN #20 tablet 04/27/17 Unknown Rx Meclizine 12.5 mg PO 09/15/18 09/15/18 History amLODIPine 5 mg PO DAILY 09/15/18 Unknown History Docusate Sodium [Colace] 100 mg PO BID PRN #60 capsule 09/16/18 Unknown Rx diazePAM TAB [Valium] 5 mg PO QHS PRN #5 tab 09/16/18 Unknown Rx Sulfamethoxazole/Trimethoprim 1 each PO BID 10 Days #20 tablet 06/20/19 Unknown Rx [Bactrim DS TAB] ED Physical Exam - General Limitations: No Limitations General appearance: alert, in no apparent distress - Head Head exam: Present: atraumatic, normocephalic - Eye Eye exam: Present: normal appearance, EOMI - ENT ENT exam: Present: mucous membranes moist - Neck Neck exam: Present: normal inspection - Respiratory Respiratory exam: Present: normal lung sounds bilaterally. Absent: respiratory distress - Cardiovascular Cardiovascular Exam: Present: regular rate, normal rhythm - GI/Abdominal GI/Abdominal exam: Present: soft. Absent: distended, tenderness - Extremities Exam Extremities exam: Present: normal inspection - Neurological Exam Neurological exam: Present: alert, oriented X3 - Psychiatric Psychiatric exam: Present: normal affect, normal mood - Skin Skin exam: Present: other (scar to left hip with 2 small areas of sanguinous oozing from the area; no purulent discharge or foul smell; nontender) ED Course Vital Signs 06/20/19 06/20/19 06/20/19 18:01 19:15 22:20 Temperature 98.2 F 97.7 F Pulse Rate 66 64 68 Respiratory 18 16 18 Rate Blood Pressure 124/85 Blood Pressure 130/74 134/84 [Left] O2 Sat by Pulse 100 98 Oximetry ED Medical Decision Making - Lab Data Result diagrams: 06/20/19 18:16 06/20/19 18:16 - Medical Decision Making No abscess present on CT. Labs unremarkable. Pt afebrile, vitals normal. Pt does not require admission at this time. Will d/c home w/ antibiotics. Advised daughter to continue dressing changes and f/u with PCP. Return precautions given. Critical care attestation.: If time is entered above; I have spent that time in minutes in the direct care of this critically ill patient, excluding procedure time. ED Disposition Clinical Impression: Wound cellulitis Disposition: - TO HOME OR SELFCARE Is pt being admited?: No Condition: Stable Instructions: Cellulitis (ED) Prescriptions: Sulfamethoxazole/Trimethoprim [Bactrim DS TAB] 1 each PO BID 10 Days #20 tablet Referrals: PRIMARY CARE, [Primary Care Provider] - 3-5 Days Time of Disposition: 21:58
--- NOTE | 2019-06-20 21:00 | Cat Scan Report ---
CT lower extremity LT w con INDICATION: drainage from wound. TECHNIQUE: All CT scans at this location are performed using the following dose modulation technique: Automated exposure control. COMPARISON: None available. FINDINGS: No acute findings are seen within the included intraperitoneal pelvis. There is no left iliac chain o r left groin adenopathy. There is chronic dislocation of the proximal left femur with respect to the left acetabulum. There is marked deformity/resorptive change at the proximal left femur and at the acetabulum which may be due to infection/inflammation. There is cortical destruction in the residual proximal left femur (as see n on series 2 image 54). There is mild soft tissue density between the proximal femur and acetabulum but no discrete, drainable fluid collection is seen. In the proximal left femur, there is a focal scl erotic focus with subtle surrounding lucency. There is a chronic fracture at the proximal left femur with cerclage wire. Fracture is incompletely healed. IMPRESSION: 1. There is chronic dislocation of the left hip. There is chronic resorptive change at the proximal l eft femur and left acetabulum. Cortical destruction at the proximal left femur is of uncertain chroni city. The patient's remote prior CT pelvis from 04/22/2017 is not available for comparison at this jerman e. Comparison with that exam would be useful, if available to determine if there is acute osteomyelit is in the proximal femur. 2. No discrete, drainable fluid collection is seen about the left hip and proximal thigh. There is mi ld subcutaneous edema and skin thickening laterally. 3. No acute intraperitoneal findings in the included pelvis. 4. Right focus in the proximal left femur in the region of the chronic fracture is subtle surrounding lucency. This could represent a bony sequestrum in the setting of chronic osteomyelitis. Correlate hamzah evans. Signer Name: Jerry Francois MD Signed: 06/20/2019 8:56 PM Workstation Name: [id number]
[2019-06-20 23:20] VITALS: BP 134/84
== END 2019-06-20 22:20 | disposition home or self-care (01) ==
LOC: ED 16:08
DX: L03.116 Cellulitis of left lower limb (principal); I10 Essential (primary) hypertension; I25.2 Old myocardial infarction; K21.9 Gastro-esophageal reflux disease without esophagitis; M19.90 Unspecified osteoarthritis, unspecified site; F12.10 Cannabis abuse, uncomplicated; F32.89 Other specified depressive episodes; E78.00 Pure hypercholesterolemia, unspecified; Z96.642 Presence of left artificial hip joint; Z98.890 Other specified postprocedural states; Z79.899 Other long term (current) drug therapy
CPT/HCPCS: 36415; 73701; 80048; 85025; 99284; Q9967